=== PATIENT | female | born 1960 | race Caucasian/White ===

== ENCOUNTER → 2022-01-24 10:28 | Outpatient (CLI) | payer OTHER, SELFPAY ==
--- NOTE | 2022-01-24 | DI.MG.S_ITS ---
BILATERAL DIGITAL SCREENING MAMMOGRAM 3D/2D WITH CAD: 01/24/2022 CLINICAL: Routine screening. Comparison is made to exams dated: 05/24/2020 mammogram, 04/25/2018 mammogram, and 11/15/2016 mammogram - outside location. There are scattered fibroglandular elements in both breasts. Current study was also evaluated with a Computer Aided Detection (CAD) system. No significant masses, calcifications, or other findings are seen in either breast. There has been no significant interval change. IMPRESSION: NEGATIVE There is no mammographic evidence of malignancy. A 1 year screening mammogram is recommended. This exam was interpreted at Station ID: [id number]. NOTE: For mammograms, a report in lay terms will be sent to the patient. Approximately 15% of breast malignancies will not be visualized mammographically. In the management of a palpable breast mass, a negative mammogram must not discourage biopsy of a clinically suspicious lesion. Electronically Signed By: Eddi Maza M.D. at/keith:01/24/2022 11:17:22 letter sent: Normal Exam ACR BI-RADS Category 1: Negative [id number]
== END ==
PROVIDERS: PCP Family Medicine; Referring Provider Family Medicine; Visit Provider Family Medicine
DX: Z12.31 Encounter for screening mammogram for malignant neoplasm of breast (principal)
CPT/HCPCS: 77063; 77067

== ENCOUNTER 2024-01-03 07:30 | Outpatient (RCR) | payer MEDICARE, OTHER, SELFPAY ==
--- NOTE | 2023-12-21 16:03 | PT.OIE ---
Current Diagnoses Muscle weakness (generalized) (12/21/23) Unsteadiness on feet (12/21/23) Other abnormalities of gait and mobility (12/21/23) Repeated falls (12/21/23) Past Medical History (Last Reviewed 09/08/23 @ 08:07 by Pam Cameron PA-C) Diverticulitis Left lower quadrant abdominal pain Visit Care Team Role Provider Type Priyanka Spicer MD Attending Provider Non-Staff Family Provider Primary Care Provider Referring Provider Specialty: Family Practice Address: [address] [place] [address], [facility] Email: Physical Therapy Initial Evaluation PT-OP-A Visit Information Start: 12/21/23 15:31 Freq: Status: Active Protocol: Document 12/21/23 09:45 DCW (Rec: 12/21/23 16:03 DCW [id number]) Out-Patient Physical Therapy Visit Information Visit Information Visit Type Initial Evaluation Visit Start Time 09:45 Visit Stop Time 10:30 Visit Number 1 Number of AUDIT MANAGER Visits 0 Evaluation Information Evaluation Date 12/21/23 PT-OP-B Current Condition Start: 12/21/23 15:31 Freq: Status: Active Protocol: Document 12/21/23 09:45 DCW (Rec: 12/21/23 16:03 DCW [id number]) Current Condition History of Current Condition Onset Date Two months history Current Complaints Imbalance, falls, fear of falling History of Current Condition Pt is a 63 year old female presenting with a sudden spontaneous worsening of balance with repeated falls since October of last year. Pt notes there was no instigating factor, just suddenly became very unsteady on her feet. Notes she feels like she just kind of loses control with forward momentum , can't get herself to stop. Has fallen both backwards and forward. Severe fear of falling following this sudden change has resulted in pt hardly ever going anywhere, admits she doesn't feel comfortable doing anything that may challenge her balance , Pt does note that she has had shingles twice in the past year, and was told by a intelligence agent that it could have going into her brain, which greatly worries pt. Pt displays very high emotional liability in regards to potential causes of her current symptoms, and appear to be exhibiting a high level of stress. Has also recently suffered the passing of her mother, which has added to her level of stress. Pt has received a referral for an MRI , but does not have one scheduled yet, as she would like to use an open MRI. Treatment Goals Patient/Caregiver Goals Decrease fear of falling, learn to use trekking poles, eliminate falls PT-OP-C Subjective Start: 12/21/23 15:31 Freq: Status: Active Protocol: Document 12/21/23 09:45 DCW (Rec: 12/21/23 16:03 DCW [id number]) OP-PT Subjective Patient Comments Patient Comments Pt denies any rotational vertigo, just notes imbalance Patient Questionnaires ABC- Activity Specific Balance Confidence Scale ABC Score 86.88% Other Questionnaire Name and Score Falls Efficacy Scale - International: PT-OP-D Balance Start: 12/21/23 15:31 Freq: Status: Active Protocol: Document 12/21/23 09:45 DCW (Rec: 12/21/23 16:03 DCW [id number]) Balance Tests Cm Balance Test Cm Balance Test Score 46/56 Cm Impairment Rating 1 to 19% Impaired (Score 45-55 ) Cm Balance Assessment Evaluation Sitting to Standing Ability Independent w/out Hands Unsupported Stance Safely- 2 minutes Sitting Unsupported, Feet on Floor Safely- 2 minutes Standing to Sitting Ability Safely, Minimal Hand Use Transfer Ability Safely, Minimal Hand Use Unsupported Stance- Eyes Closed Safely, 10 seconds Unsupported Stance- Eyes Open Independent, 1 minute Reaching Forward Standing Safely, 5 inches Pick- Up Object From Floor Independent/Safe Look Behind Shoulder - Standing Shifts Weight Unilateral Turning 360 Degrees Turns slowly, but safely Unsupported Stance, Alternating Feet on 4 Steps w/Supervision Stair Unsupported Tandem Stance Holds Tandem- 30 seconds Unilateral Leg Stance Lifts Leg/Unable to Hold Total Score Cm Total Score (out of 56 points) 46 Cm Impairment Rating 1 to 19% Impaired (Score 45-55 ) PT-OP-E Functional Tests Start: 12/21/23 15:31 Freq: Status: Active Protocol: Document 12/21/23 09:45 DCW (Rec: 12/21/23 16:03 DCW [id number]) Functional Tests Dynamic Gait Index (DGI) Score 1724 DGI Impairment Rating 20 to <40% Impaired (Score 15- 19) PT-OP-M Strength Start: 12/21/23 15:31 Freq: Status: Active Protocol: Document 12/21/23 09:45 DCW (Rec: 12/21/23 16:03 DCW [id number]) Hip Strength Hip Manual Muscle Testing Right Flexion (L2) 3+ Fair+ Abduction 4- Good- Adduction 4- Good- Left Flexion (L2) 3+ Fair+ Abduction 4- Good- Adduction 4- Good- Knee Strength Knee Manual Muscle Testing Right Flexion (S2) 4+ Good+ Extension (L3) 4+ Good+ Left Flexion (S2) 4+ Good+ Extension (L3) 4+ Good+ Ankle/Foot Strength Ankle and Foot Manual Muscle Testing Right Dorsiflexion (L4) 4 Good Left Dorsiflexion (L4) 4 Good PT-OP-T Assessment and Plan Start: 12/21/23 15:31 Freq: Status: Active Protocol: Document 12/21/23 09:45 DCW (Rec: 12/21/23 16:03 DCW [id number]) Physical Therapy Assessment Rehab Potential Rehabilitation Potential Good Evaluation Complexity Number of Personal Factors/Comorbidities 3 or More Number of Body Systems Impaired 4 or More Clinical Presentation at Evaluation Unstable Impairments Impairments Balance,Functional Activities, Functional Mobility,Strength Other Concerns Fall Risk High falls risk Goals Three Impairment Pt at increased falls risk, per DGI score () Care Home Goal (LTG) Pt to increase DGI score by at least three points to 2024 in order to demonstrate decreased falls risk LTG Duration 03/20/24 Two Impairment Pt exhibits significant bilateral hip weakness (3+/5, 4-/5) Care Home Goal (LTG) Pt to demonstrate bilateral hip MMT of at least 4/5 with hip flexion, abduction, and adduction in order to improve hip stability during gait LTG Duration 03/20/24 One Impairment Pt does not have an appropriate home exercise program Short Term Goal (STG) Pt to be independent and compliant with an appropriate HEP STG Duration 01/19/24 Assessment Summary Assessment Pt presents with signs and symptoms consistent with increased falls risk, high fear of falling, and hip weakness, resulting in limited participation in usual activities and deconditioning. Pt had unexplained sudden change in function two months ago, and has experienced multiple falls, which may be concerning for central cause of imbalance. Pt has already obtained referral for brain MRI, which is a good next step . In the meantime, pt should greatly benefit from skilled therapy focusing on balance and gait training, hip strengthening, and improving activity tolerance in an effort to decrease both falls risk and pt's severe fear of falling. Pt does exhibit fairly significant bilateral hip weakness, which may additionally be creating worsening imbalance and difficulty correcting any potential LOB due to difficulty with hip strategies . Physical Therapy Plan Frequency and Duration Frequency of Treatment 2x/Week Plan of Care Start Date 12/21/23 Plan of Care End Date 03/20/24 Therapeutic Interventions Therapeutic Interventions Balance Training,Gait Training ,Home Exercise Program,Joint Mobilizations,Manual Therapy, Neuromuscular Re-education, Patient/Caregiver Education, Self-Care/Home Management,Soft Tissue Mobilization, Therapeutic Activities, Therapeutic Exercises Modalities Cold Pack/Ice Massage,Electric Stimulation,Hot Packs, Ultrasound Next Visit Focus/Plan Next Note Type Treatment Note Next Visit Plan Hip strengthening, balance/ gait training
--- NOTE | 2023-12-21 16:04 | PT.OPPOC ---
Physical, Occupational & Speech Therapy At [facility] Current Diagnoses Muscle weakness (generalized) (12/21/23) Unsteadiness on feet (12/21/23) Other abnormalities of gait and mobility (12/21/23) Repeated falls (12/21/23) Visit Care Team Role Provider Type Priyanka Spicer MD Attending Provider Non-Staff Family Provider Primary Care Provider Referring Provider Specialty: Family Practice Address: [address] [place] [address], [facility] Email: Plan Of Care PT-OP-T Assessment and Plan Start: 12/21/23 15:31 Freq: Status: Active Protocol: Document 12/21/23 09:45 DCW (Rec: 12/21/23 16:03 DCW [id number]) Physical Therapy Assessment Rehab Potential Rehabilitation Potential Good Evaluation Complexity Number of Personal Factors/Comorbidities 3 or More Number of Body Systems Impaired 4 or More Clinical Presentation at Evaluation Unstable Impairments Impairments Balance,Functional Activities, Functional Mobility,Strength Other Concerns Fall Risk High falls risk Goals Three Impairment Pt at increased falls risk, per DGI score () Nursing Home Goal (LTG) Pt to increase DGI score by at least three points to in order to demonstrate decreased falls risk LTG Duration 03/20/24 Two Impairment Pt exhibits significant bilateral hip weakness (3+/5, 4-/5) Nursing Home Goal (LTG) Pt to demonstrate bilateral hip MMT of at least 4/5 with hip flexion, abduction, and adduction in order to improve hip stability during gait LTG Duration 03/20/24 One Impairment Pt does not have an appropriate home exercise program Short Term Goal (STG) Pt to be independent and compliant with an appropriate HEP STG Duration 01/19/24 Assessment Summary Assessment Pt presents with signs and symptoms consistent with increased falls risk, high fear of falling, and hip weakness, resulting in limited participation in usual activities and deconditioning. Pt had unexplained sudden change in function two months ago, and has experienced multiple falls, which may be concerning for central cause of imbalance. Pt has already obtained referral for brain MRI, which is a good next step . In the meantime, pt should greatly benefit from skilled therapy focusing on balance and gait training, hip strengthening, and improving activity tolerance in an effort to decrease both falls risk and pt's severe fear of falling. Pt does exhibit fairly significant bilateral hip weakness, which may additionally be creating worsening imbalance and difficulty correcting any potential LOB due to difficulty with hip strategies . Physical Therapy Plan Frequency and Duration Frequency of Treatment 2x/Week Plan of Care Start Date 12/21/23 Plan of Care End Date 03/20/24 Therapeutic Interventions Therapeutic Interventions Balance Training,Gait Training ,Home Exercise Program,Joint Mobilizations,Manual Therapy, Neuromuscular Re-education, Patient/Caregiver Education, Self-Care/Home Management,Soft Tissue Mobilization, Therapeutic Activities, Therapeutic Exercises Modalities Cold Pack/Ice Massage,Electric Stimulation,Hot Packs, Ultrasound Next Visit Focus/Plan Next Note Type Treatment Note Next Visit Plan Hip strengthening, balance/ gait training Plan of Care Dates Plan of Care Start Date 12/21/23 Plan of Care End Date 03/20/24 Electronically Signed by: Pardeep Gutierrez, PT 12/21/23 0597 If you are in agreement with this Plan of Care, please return a signed and dated copy. I have reviewed this Plan of Care and certify that the skilled therapy services above are required to meet the patient?s needs. Physician Signature Date Printed Name and Credentials Clinical Instructor Signature Printed Name and Credentials
--- NOTE | 2023-12-26 11:18 | PT.OTN ---
Current Diagnoses Muscle weakness (generalized) (12/26/23) Unsteadiness on feet (12/26/23) Other abnormalities of gait and mobility (12/26/23) Repeated falls (12/26/23) Physical Therapy Treatment Note PT-OP-A Visit Information Start: 12/21/23 15:31 Freq: Status: Active Protocol: Document 12/26/23 10:30 DCW (Rec: 12/26/23 11:18 DCW [id number]) Out-Patient Physical Therapy Visit Information Visit Information Visit Type Initial Evaluation Visit Start Time 10:30 Visit Stop Time 11:15 Visit Number 2 Number of PAPER PROCESSING MACHINE HELPER Visits 0 Evaluation Information Evaluation Date 12/21/23 PT-OP-B Current Condition Start: 12/21/23 15:31 Freq: Status: Active Protocol: Document 12/21/23 09:45 DCW (Rec: 12/21/23 16:03 DCW [id number]) Current Condition History of Current Condition Onset Date Two months history Current Complaints Imbalance, falls, fear of falling History of Current Condition Pt is a 63 year old female presenting with a sudden spontaneous worsening of balance with repeated falls since October of last year. Pt notes there was no instigating factor, just suddenly became very unsteady on her feet. Notes she feels like she just kind of loses control with forward momentum , can't get herself to stop. Has fallen both backwards and forward. Severe fear of falling following this sudden change has resulted in pt hardly ever going anywhere, admits she doesn't feel comfortable doing anything that may challenge her balance , Pt does note that she has had shingles twice in the past year, and was told by a business analytics analyst that it could have going into her brain, which greatly worries pt. Pt displays very high emotional liability in regards to potential causes of her current symptoms, and appear to be exhibiting a high level of stress. Has also recently suffered the passing of her mother, which has added to her level of stress. Pt has received a referral for an MRI , but does not have one scheduled yet, as she would like to use an open MRI. Treatment Goals Patient/Caregiver Goals Decrease fear of falling, learn to use trekking poles, eliminate falls PT-OP-C Subjective Start: 12/21/23 15:31 Freq: Status: Active Protocol: Document 02/06/24 10:30 DCW (Rec: 12/26/23 11:18 DCW [id number]) OP-PT Subjective Patient Comments Patient Comments Pt has switched from a heavy purse to a ken pack to help limit instability PT-OP-D Balance Start: 12/21/23 15:31 Freq: Status: Active Protocol: Document 12/21/23 09:45 DCW (Rec: 12/21/23 16:03 DCW [id number]) Balance Tests Cm Balance Test Cm Balance Test Score 46/56 Cm Impairment Rating 1 to 19% Impaired (Score 45-55 ) Cm Balance Assessment Evaluation Sitting to Standing Ability Independent w/out Hands Unsupported Stance Safely- 2 minutes Sitting Unsupported, Feet on Floor Safely- 2 minutes Standing to Sitting Ability Safely, Minimal Hand Use Transfer Ability Safely, Minimal Hand Use Unsupported Stance- Eyes Closed Safely, 10 seconds Unsupported Stance- Eyes Open Independent, 1 minute Reaching Forward Standing Safely, 5 inches Pick- Up Object From Floor Independent/Safe Look Behind Shoulder - Standing Shifts Weight Unilateral Turning 360 Degrees Turns slowly, but safely Unsupported Stance, Alternating Feet on 4 Steps w/Supervision Stair Unsupported Tandem Stance Holds Tandem- 30 seconds Unilateral Leg Stance Lifts Leg/Unable to Hold Total Score Cm Total Score (out of 56 points) 46 Cm Impairment Rating 1 to 19% Impaired (Score 45-55 ) PT-OP-E Functional Tests Start: 12/21/23 15:31 Freq: Status: Active Protocol: Document 12/21/23 09:45 DCW (Rec: 12/21/23 16:03 DCW [id number]) Functional Tests Dynamic Gait Index (DGI) Score 17 DGI Impairment Rating 20 to <40% Impaired (Score 15- 19) PT-OP-M Strength Start: 12/21/23 15:31 Freq: Status: Active Protocol: Document 12/21/23 09:45 DCW (Rec: 12/21/23 16:03 DCW [id number]) Hip Strength Hip Manual Muscle Testing Right Flexion (L2) 3+ Fair+ Abduction 4- Good- Adduction 4- Good- Left Flexion (L2) 3+ Fair+ Abduction 4- Good- Adduction 4- Good- Knee Strength Knee Manual Muscle Testing Right Flexion (S2) 4+ Good+ Extension (L3) 4+ Good+ Left Flexion (S2) 4+ Good+ Extension (L3) 4+ Good+ Ankle/Foot Strength Ankle and Foot Manual Muscle Testing Right Dorsiflexion (L4) 4 Good Left Dorsiflexion (L4) 4 Good PT-OP-Q Treatments Start: 12/21/23 15:31 Freq: Status: Active Protocol: Document 12/26/23 10:30 DCW (Rec: 12/26/23 11:18 DCW [id number]) Gym Equipment Shuttle Recovery Unilateral Squats Resistance 37# (one new) Shuttle Recovery Platform Stable Bilateral Squats Resistance 75# (three new) Shuttle Recovery Platform Stable Therapeutic Exercises Standing Exercises Hip Extension Standing Exercise Name Hip Extension Side bilateral Resistance Green loop Equipment Used // bars Other Exercises Resisted Ambulation Other Exercise Name Resisted side-stepping Resistance Green loop Equipment Used // bars Neuro Re-Education Treatment Balance Activities Foam Stance Details Foam stance Surface [employer] Comments EO, EC, X1 Balance Board Details Lateral weight shift Tandem Stance Details Tandem Stance Equipment // bars Self-Care/Home Management Treatment Education Other Education Expectation what to expect with MRI, disease process of various maladies pt is concerned about (MS, Parkinson 's, Brain Tumors). PT-OP-T Assessment and Plan Start: 12/21/23 15:31 Freq: Status: Active Protocol: Document 12/26/23 10:30 DCW (Rec: 12/26/23 11:18 DCW [id number]) Physical Therapy Assessment Impairments Impairments Balance,Functional Activities, Functional Mobility,Strength Goals Three Impairment Pt at increased falls risk, per DGI score () Instrument Shop Supervisor Goal (LTG) Pt to increase DGI score by at least three points to 20 in order to demonstrate decreased falls risk LTG Duration 03/20/24 Two Impairment Pt exhibits significant bilateral hip weakness (3+/5, 4-/5) Instrument Shop Supervisor Goal (LTG) Pt to demonstrate bilateral hip MMT of at least 4/5 with hip flexion, abduction, and adduction in order to improve hip stability during gait LTG Duration 03/20/24 One Impairment Pt does not have an appropriate home exercise program Short Term Goal (STG) Pt to be independent and compliant with an appropriate HEP STG Duration 01/19/24 Assessment Summary Assessment Pt continues to be very highly focused on potential causes of imbalance, concerned about results of upcoming MRI. Much time spent today attempting to alleviate pt's concerns. Otherwise, pt had good response to balance challenges today, improved with increased sense of comfort when in // bars. Physical Therapy Plan Frequency and Duration Frequency of Treatment 2x/Week Plan of Care Start Date 12/21/23 Plan of Care End Date 03/20/24 Therapeutic Interventions Therapeutic Interventions Balance Training,Gait Training ,Home Exercise Program,Joint Mobilizations,Manual Therapy, Neuromuscular Re-education, Patient/Caregiver Education, Self-Care/Home Management,Soft Tissue Mobilization, Therapeutic Activities, Therapeutic Exercises Modalities Cold Pack/Ice Massage,Electric Stimulation,Hot Packs, Ultrasound Next Visit Focus/Plan Next Note Type Treatment Note Next Visit Plan Hip strengthening, balance/ gait training
--- NOTE | 2023-12-29 09:48 | PT.OTN ---
Current Diagnoses Muscle weakness (generalized) (12/29/23) Unsteadiness on feet (12/29/23) Other abnormalities of gait and mobility (12/29/23) Repeated falls (12/29/23) Physical Therapy Treatment Note PT-OP-A Visit Information Start: 12/21/23 15:31 Freq: Status: Active Protocol: Document 12/29/23 09:00 DCW (Rec: 12/29/23 09:48 DCW [id number]) Out-Patient Physical Therapy Visit Information Visit Information Visit Type Initial Evaluation Visit Start Time 09:00 Visit Stop Time 09:45 Visit Number 3 Number of HR CONSULTANT Visits 0 Evaluation Information Evaluation Date 12/21/23 PT-OP-B Current Condition Start: 12/21/23 15:31 Freq: Status: Active Protocol: Document 12/21/23 09:45 DCW (Rec: 12/21/23 16:03 DCW [id number]) Current Condition History of Current Condition Onset Date Two months history Current Complaints Imbalance, falls, fear of falling History of Current Condition Pt is a 63 year old female presenting with a sudden spontaneous worsening of balance with repeated falls since October of last year. Pt notes there was no instigating factor, just suddenly became very unsteady on her feet. Notes she feels like she just kind of loses control with forward momentum , can't get herself to stop. Has fallen both backwards and forward. Severe fear of falling following this sudden change has resulted in pt hardly ever going anywhere, admits she doesn't feel comfortable doing anything that may challenge her balance , Pt does note that she has had shingles twice in the past year, and was told by a dipper and drier that it could have going into her brain, which greatly worries pt. Pt displays very high emotional liability in regards to potential causes of her current symptoms, and appear to be exhibiting a high level of stress. Has also recently suffered the passing of her mother, which has added to her level of stress. Pt has received a referral for an MRI , but does not have one scheduled yet, as she would like to use an open MRI. Treatment Goals Patient/Caregiver Goals Decrease fear of falling, learn to use trekking poles, eliminate falls PT-OP-C Subjective Start: 12/21/23 15:31 Freq: Status: Active Protocol: Document 12/29/23 09:00 DCW (Rec: 12/29/23 09:48 DCW [id number]) OP-PT Subjective Patient Comments Patient Comments Pt noted she was pretty sore/ fatigued following last visit. PT-OP-D Balance Start: 12/21/23 15:31 Freq: Status: Active Protocol: Document 12/21/23 09:45 DCW (Rec: 12/21/23 16:03 DCW [id number]) Balance Tests Cm Balance Test Cm Balance Test Score 46/56 Cm Impairment Rating 1 to 19% Impaired (Score 45-55 ) Cm Balance Assessment Evaluation Sitting to Standing Ability Independent w/out Hands Unsupported Stance Safely- 2 minutes Sitting Unsupported, Feet on Floor Safely- 2 minutes Standing to Sitting Ability Safely, Minimal Hand Use Transfer Ability Safely, Minimal Hand Use Unsupported Stance- Eyes Closed Safely, 10 seconds Unsupported Stance- Eyes Open Independent, 1 minute Reaching Forward Standing Safely, 5 inches Pick- Up Object From Floor Independent/Safe Look Behind Shoulder - Standing Shifts Weight Unilateral Turning 360 Degrees Turns slowly, but safely Unsupported Stance, Alternating Feet on 4 Steps w/Supervision Stair Unsupported Tandem Stance Holds Tandem- 30 seconds Unilateral Leg Stance Lifts Leg/Unable to Hold Total Score Cm Total Score (out of 56 points) 46 Cm Impairment Rating 1 to 19% Impaired (Score 45-55 ) PT-OP-E Functional Tests Start: 12/21/23 15:31 Freq: Status: Active Protocol: Document 12/21/23 09:45 DCW (Rec: 12/21/23 16:03 DCW [id number]) Functional Tests Dynamic Gait Index (DGI) Score 17 DGI Impairment Rating 20 to <40% Impaired (Score 15- 19) PT-OP-M Strength Start: 12/21/23 15:31 Freq: Status: Active Protocol: Document 12/21/23 09:45 DCW (Rec: 12/21/23 16:03 DCW [id number]) Hip Strength Hip Manual Muscle Testing Right Flexion (L2) 3+ Fair+ Abduction 4- Good- Adduction 4- Good- Left Flexion (L2) 3+ Fair+ Abduction 4- Good- Adduction 4- Good- Knee Strength Knee Manual Muscle Testing Right Flexion (S2) 4+ Good+ Extension (L3) 4+ Good+ Left Flexion (S2) 4+ Good+ Extension (L3) 4+ Good+ Ankle/Foot Strength Ankle and Foot Manual Muscle Testing Right Dorsiflexion (L4) 4 Good Left Dorsiflexion (L4) 4 Good PT-OP-Q Treatments Start: 12/21/23 15:31 Freq: Status: Active Protocol: Document 12/29/23 09:00 DCW (Rec: 12/29/23 09:48 DCW [id number]) Gym Equipment Shuttle Recovery Unilateral Squats Resistance 37# (one new) Shuttle Recovery Platform Stable Bilateral Squats Resistance 75# (three new) Shuttle Recovery Platform Stable Shuttle Balance Red Details WBOS, Staggered Therapeutic Exercises Standing Exercises Hip Extension Standing Exercise Name Hip Extension Side bilateral Resistance Green loop Equipment Used // bars Other Exercises Resisted Ambulation Other Exercise Name Resisted side-stepping Resistance Green loop Equipment Used // bars Neuro Re-Education Treatment Balance Activities Hurdles Details Hurdles Equipment // bars Foam Stance Details Marching Surface Large blue foam PT-OP-T Assessment and Plan Start: 12/21/23 15:31 Freq: Status: Active Protocol: Document 12/29/23 09:00 DCW (Rec: 12/29/23 09:48 DCW [id number]) Physical Therapy Assessment Impairments Impairments Balance,Functional Activities, Functional Mobility,Strength Goals Three Impairment Pt at increased falls risk, per DGI score () Residential Goal (LTG) Pt to increase DGI score by at least three points to in order to demonstrate decreased falls risk LTG Duration 03/20/24 Two Impairment Pt exhibits significant bilateral hip weakness (3+/5, 4-/5) Group Fitness Instructor Goal (LTG) Pt to demonstrate bilateral hip MMT of at least 4/5 with hip flexion, abduction, and adduction in order to improve hip stability during gait LTG Duration 03/20/24 One Impairment Pt does not have an appropriate home exercise program Short Term Goal (STG) Pt to be independent and compliant with an appropriate HEP STG Duration 01/19/24 Assessment Summary Assessment Difficulty with balance challenges today, pt a little more open to performing without holding on to rail. Still clearly impacted by hip weakness leading to increased instability. Physical Therapy Plan Frequency and Duration Frequency of Treatment 2x/Week Plan of Care Start Date 12/21/23 Plan of Care End Date 03/20/24 Therapeutic Interventions Therapeutic Interventions Balance Training,Gait Training ,Home Exercise Program,Joint Mobilizations,Manual Therapy, Neuromuscular Re-education, Patient/Caregiver Education, Self-Care/Home Management,Soft Tissue Mobilization, Therapeutic Activities, Therapeutic Exercises Modalities Cold Pack/Ice Massage,Electric Stimulation,Hot Packs, Ultrasound Next Visit Focus/Plan Next Note Type Treatment Note Next Visit Plan Hip strengthening, balance/ gait training
--- NOTE | 2024-01-03 08:15 | PT.OTN ---
Current Diagnoses Muscle weakness (generalized) (01/03/24) Unsteadiness on feet (01/03/24) Other abnormalities of gait and mobility (01/03/24) Repeated falls (01/03/24) Physical Therapy Treatment Note PT-OP-A Visit Information Start: 12/21/23 15:31 Freq: Status: Active Protocol: Document 01/03/24 07:30 SP (Rec: 01/03/24 08:20 SP [id number]) Out-Patient Physical Therapy Visit Information Visit Information Visit Type Treatment Note Visit Start Time 07:30 Visit Stop Time 08:15 Visit Number 4 Number of SHOT POLISHER AND INSPECTOR Visits 1 Evaluation Information Evaluation Date 12/21/23 PT-OP-B Current Condition Start: 12/21/23 15:31 Freq: Status: Active Protocol: Document 12/21/23 09:45 DCW (Rec: 12/21/23 16:03 DCW [id number]) Current Condition History of Current Condition Onset Date Two months history Current Complaints Imbalance, falls, fear of falling History of Current Condition Pt is a 63 year old female presenting with a sudden spontaneous worsening of balance with repeated falls since October of last year. Pt notes there was no instigating factor, just suddenly became very unsteady on her feet. Notes she feels like she just kind of loses control with forward momentum , can't get herself to stop. Has fallen both backwards and forward. Severe fear of falling following this sudden change has resulted in pt hardly ever going anywhere, admits she doesn't feel comfortable doing anything that may challenge her balance , Pt does note that she has had shingles twice in the past year, and was told by a club lounge attendant that it could have going into her brain, which greatly worries pt. Pt displays very high emotional liability in regards to potential causes of her current symptoms, and appear to be exhibiting a high level of stress. Has also recently suffered the passing of her mother, which has added to her level of stress. Pt has received a referral for an MRI , but does not have one scheduled yet, as she would like to use an open MRI. Treatment Goals Patient/Caregiver Goals Decrease fear of falling, learn to use trekking poles, eliminate falls PT-OP-C Subjective Start: 12/21/23 15:31 Freq: Status: Active Protocol: Document 01/03/24 07:30 SP (Rec: 01/03/24 08:20 SP [id number]) OP-PT Subjective Patient Comments Patient Comments Pt arrival use of 1 trek pole in RUE, got little dizzy walking into clinic and checking in, family and consumer sciences teacher reported noted sway/LOB provided chair to sit quickly for safety. Insurance Advisor reported to SHOT POLISHER AND INSPECTOR, pt's poor mobility and dizziness when arrived pre tx as SHOT POLISHER AND INSPECTOR came up to front to get pt. Pt stated had an MRI of brain yesterday and awaiting results. Her physician's are closer to [place]. PT-OP-D Balance Start: 12/21/23 15:31 Freq: Status: Active Protocol: Document 12/21/23 09:45 DCW (Rec: 12/21/23 16:03 DCW [id number]) Balance Tests Cm Balance Test Cm Balance Test Score 46/56 Cm Impairment Rating 1 to 19% Impaired (Score 45-55 ) Cm Balance Assessment Evaluation Sitting to Standing Ability Independent w/out Hands Unsupported Stance Safely- 2 minutes Sitting Unsupported, Feet on Floor Safely- 2 minutes Standing to Sitting Ability Safely, Minimal Hand Use Transfer Ability Safely, Minimal Hand Use Unsupported Stance- Eyes Closed Safely, 10 seconds Unsupported Stance- Eyes Open Independent, 1 minute Reaching Forward Standing Safely, 5 inches Pick- Up Object From Floor Independent/Safe Look Behind Shoulder - Standing Shifts Weight Unilateral Turning 360 Degrees Turns slowly, but safely Unsupported Stance, Alternating Feet on 4 Steps w/Supervision Stair Unsupported Tandem Stance Holds Tandem- 30 seconds Unilateral Leg Stance Lifts Leg/Unable to Hold Total Score Cm Total Score (out of 56 points) 46 Cm Impairment Rating 1 to 19% Impaired (Score 45-55 ) PT-OP-E Functional Tests Start: 12/21/23 15:31 Freq: Status: Active Protocol: Document 12/21/23 09:45 DCW (Rec: 12/21/23 16:03 DCW [id number]) Functional Tests Dynamic Gait Index (DGI) Score 1724 DGI Impairment Rating 20 to <40% Impaired (Score 15- 19) PT-OP-M Strength Start: 12/21/23 15:31 Freq: Status: Active Protocol: Document 12/21/23 09:45 DCW (Rec: 12/21/23 16:03 DCW [id number]) Hip Strength Hip Manual Muscle Testing Right Flexion (L2) 3+ Fair+ Abduction 4- Good- Adduction 4- Good- Left Flexion (L2) 3+ Fair+ Abduction 4- Good- Adduction 4- Good- Knee Strength Knee Manual Muscle Testing Right Flexion (S2) 4+ Good+ Extension (L3) 4+ Good+ Left Flexion (S2) 4+ Good+ Extension (L3) 4+ Good+ Ankle/Foot Strength Ankle and Foot Manual Muscle Testing Right Dorsiflexion (L4) 4 Good Left Dorsiflexion (L4) 4 Good PT-OP-Q Treatments Start: 12/21/23 15:31 Freq: Status: Active Protocol: Document 01/03/24 07:30 SP (Rec: 01/03/24 08:20 SP [id number]) Therapeutic Exercises Sitting Exercises hip abd Sitting Exercise Name trialed in PT: added to HEP Resistance TB #3 [place] at thighs Reps/Minutes 2x10 Comments this is good resistance, muscles tiring LAQ Sitting Exercise Name trialed in PT Resistance 5# leg wt Reps/Minutes 2x10 Comments target to kick to therapist hand.quad tiring Self-Care/Home Management Treatment Education Other Education Extra time safety education on assessment of BP checks and time transition between position changes at least 1 min if needed for safety progression mobility, verbalized no one has ever told me this, good idea. Extra time assessing vitals and safety mobility. Discussed with pt Concerns of HR and BP elevation and reported dizziness and LOB when checking in, recommend going to ER for further assessment safety. Pt in agreement, called her to come meet her and suggested calling her physician for awareness and if has further recommendations. Pt verbalized will do as suggested and in agreement. PT-OP-T Assessment and Plan Start: 12/21/23 15:31 Freq: Status: Active Protocol: Document 01/03/24 07:30 SP (Rec: 01/03/24 08:20 SP [id number]) Physical Therapy Assessment Goals Three Impairment Pt at increased falls risk, per DGI score () Therapist Goal (LTG) Pt to increase DGI score by at least three points to in order to demonstrate decreased falls risk LTG Duration 03/20/24 Two Impairment Pt exhibits significant bilateral hip weakness (3+/5, 4-/5) Jail Goal (LTG) Pt to demonstrate bilateral hip MMT of at least 4/5 with hip flexion, abduction, and adduction in order to improve hip stability during gait LTG Duration 03/20/24 One Impairment Pt does not have an appropriate home exercise program Short Term Goal (STG) Pt to be independent and compliant with an appropriate HEP STG Duration 01/19/24 Assessment Summary Assessment SHOT POLISHER AND INSPECTOR provided vital assessment pre tx and with seated and brief standing stepping mobility CGa for safety if need further medical attention . Seated in front counter clerk chair: BP LUE automated 154/95 HR 103 seated, standing 162/92 HR 110, noted slight trunk sways while using R trek pole for stability. Provided w/c for portability to gym for further assessment safety during tx. Seated /p LE ex L UE BP 135/90 HR 100, stand 145/90 HR108, post stand side stepping in // bars BP 166/93 HR 120. SHOT POLISHER AND INSPECTOR provided gait belt and CGA for safety during mobility, she denies symptomatic, I feel tired and suprised had that light headness/dizziness, has been a long time, I am usually just off balance and why am here to get stronger. Pt non symptomatic during ther ex, transfer and side stepping mobility but states feeling tired. Pt inagreement further assessment to ER would be [facility] . SHOT POLISHER AND INSPECTOR pushed pt up in w/c to ER and provided BPs taken and summary of intake and mobilty noted during tx to triage nurse in ER. ER staff took over care. Physical Therapy Plan Frequency and Duration Frequency of Treatment 2x/Week Plan of Care Start Date 12/21/23 Plan of Care End Date 03/20/24 Therapeutic Interventions Therapeutic Interventions Balance Training,Gait Training ,Home Exercise Program,Joint Mobilizations,Manual Therapy, Neuromuscular Re-education, Patient/Caregiver Education, Self-Care/Home Management,Soft Tissue Mobilization, Therapeutic Activities, Therapeutic Exercises Modalities Cold Pack/Ice Massage,Electric Stimulation,Hot Packs, Ultrasound Next Visit Focus/Plan Next Note Type Treatment Note Next Visit Plan Ask how pt did in ER end last tx. Progress if stable. POC: Hip strengthening, balance/gait training
--- NOTE | 2024-01-29 10:08 | PT.OPDS ---
Current Diagnoses Muscle weakness (generalized) (01/03/24) Unsteadiness on feet (01/03/24) Other abnormalities of gait and mobility (01/03/24) Repeated falls (01/03/24) Visit Care Team Role Provider Type Priyanka Spicer MD Attending Provider Non-Staff Family Provider Primary Care Provider Referring Provider Specialty: Family Practice Address: [address] [place] [address], [facility] Email: Visit Number Visit Number 4 Discharge Summary PT-OP-B Current Condition Start: 12/21/23 15:31 Freq: Status: Active Protocol: Document 12/21/23 09:45 DCW (Rec: 12/21/23 16:03 DCW [id number]) Current Condition History of Current Condition Onset Date Two months history Current Complaints Imbalance, falls, fear of falling History of Current Condition Pt is a 63 year old female presenting with a sudden spontaneous worsening of balance with repeated falls since October of last year. Pt notes there was no instigating factor, just suddenly became very unsteady on her feet. Notes she feels like she just kind of loses control with forward momentum , can't get herself to stop. Has fallen both backwards and forward. Severe fear of falling following this sudden change has resulted in pt hardly ever going anywhere, admits she doesn't feel comfortable doing anything that may challenge her balance , Pt does note that she has had shingles twice in the past year, and was told by a integration software engineer that it could have going into her brain, which greatly worries pt. Pt displays very high emotional liability in regards to potential causes of her current symptoms, and appear to be exhibiting a high level of stress. Has also recently suffered the passing of her mother, which has added to her level of stress. Pt has received a referral for an MRI , but does not have one scheduled yet, as she would like to use an open MRI. Treatment Goals Patient/Caregiver Goals Decrease fear of falling, learn to use trekking poles, eliminate falls PT-OP-C Subjective Start: 12/21/23 15:31 Freq: Status: Active Protocol: Document 01/03/24 07:30 SP (Rec: 01/03/24 08:20 SP [id number]) OP-PT Subjective Patient Comments Patient Comments Pt arrival use of 1 trek pole in [place], got little dizzy walking into clinic and checking in, mill roll operator reported noted sway/LOB provided chair to sit quickly for safety. Quality Assurance Monitor Body reported to DELIVERY CONSULTANT, pt's poor mobility and dizziness when arrived pre tx as DELIVERY CONSULTANT came up to front to get pt. Pt stated had an MRI of brain yesterday and awaiting results. Her physician's are closer to [place]. PT-OP-D Balance Start: 12/21/23 15:31 Freq: Status: Active Protocol: Document 12/21/23 09:45 DCW (Rec: 12/21/23 16:03 DCW [id number]) Balance Tests Cm Balance Test Cm Balance Test Score 46/56 Cm Impairment Rating 1 to 19% Impaired (Score 45-55 ) Cm Balance Assessment Evaluation Sitting to Standing Ability Independent w/out Hands Unsupported Stance Safely- 2 minutes Sitting Unsupported, Feet on Floor Safely- 2 minutes Standing to Sitting Ability Safely, Minimal Hand Use Transfer Ability Safely, Minimal Hand Use Unsupported Stance- Eyes Closed Safely, 10 seconds Unsupported Stance- Eyes Open Independent, 1 minute Reaching Forward Standing Safely, 5 inches Pick- Up Object From Floor Independent/Safe Look Behind Shoulder - Standing Shifts Weight Unilateral Turning 360 Degrees Turns slowly, but safely Unsupported Stance, Alternating Feet on 4 Steps w/Supervision Stair Unsupported Tandem Stance Holds Tandem- 30 seconds Unilateral Leg Stance Lifts Leg/Unable to Hold Total Score Cm Total Score (out of 56 points) 46 Cm Impairment Rating 1 to 19% Impaired (Score 45-55 ) PT-OP-E Functional Tests Start: 12/21/23 15:31 Freq: Status: Active Protocol: Document 12/21/23 09:45 DCW (Rec: 12/21/23 16:03 DCW [id number]) Functional Tests Dynamic Gait Index (DGI) Score 17 DGI Impairment Rating 20 to <40% Impaired (Score 15- 19) PT-OP-M Strength Start: 12/21/23 15:31 Freq: Status: Active Protocol: Document 12/21/23 09:45 DCW (Rec: 12/21/23 16:03 DCW [id number]) Hip Strength Hip Manual Muscle Testing Right Flexion (L2) 3+ Fair+ Abduction 4- Good- Adduction 4- Good- Left Flexion (L2) 3+ Fair+ Abduction 4- Good- Adduction 4- Good- Knee Strength Knee Manual Muscle Testing Right Flexion (S2) 4+ Good+ Extension (L3) 4+ Good+ Left Flexion (S2) 4+ Good+ Extension (L3) 4+ Good+ Ankle/Foot Strength Ankle and Foot Manual Muscle Testing Right Dorsiflexion (L4) 4 Good Left Dorsiflexion (L4) 4 Good PT-OP-T Assessment and Plan Start: 12/21/23 15:31 Freq: Status: Active Protocol: Document 01/29/24 10:04 DCW (Rec: 01/29/24 10:08 DCW [id number]) Physical Therapy Assessment Assessment Summary Assessment Pt was sent to the ED at her last PT appointment. Pt was found to have a mass in her brain, and was transferred to , underwent a craniotomy to remove the mass. Will be returning to PT at a later date with a new referral due to substantial change in medical status. Physical Therapy Plan Discharge Physical Therapy Discharge Reasons Change in Medical Status
== END 2024-01-30 07:53 | disposition home or self-care (01) ==
LOC: PHYS 07:30
PROVIDERS: Family Provider Family Medicine; PCP Family Medicine; Referring Provider Family Medicine; Visit Provider Family Medicine
DX: R26.89 Other abnormalities of gait and mobility (principal); R29.6 Repeated falls; R26.81 Unsteadiness on feet; M62.81 Muscle weakness (generalized)
CPT/HCPCS: 97110; 97112; 97163; 97535

== ENCOUNTER 2024-01-03 08:12 | Emergency (ER) | payer MEDICARE, OTHER, SELFPAY ==
[2024-01-03] VITALS (71 sets, daily range): BP systolic 124–205; BP diastolic 63–116; PULSE 92–135; RESP 12–32; TEMP 37.1; O2SAT 91–99; BMI 31.6
--- NOTE | 2024-01-03 08:25 | DI.RAD.S_ITS ---
PROCEDURE: XR CHEST 1V INDICATIONS: chest pain TECHNIQUE: One view of the chest was acquired. COMPARISON: None. FINDINGS: Surgical changes and devices: None. Lungs and pleura: Lungs are clear. No pleural effusions or pneumothorax. Mediastinum: Mediastinal contours appear normal. Heart size is enlarged. Bones and chest wall: No suspicious bony lesions. Overlying soft tissues appear unremarkable. IMPRESSION: No acute cardiopulmonary pathology. Dictated by: David Duque M.D. on 01/03/2024 at 8:56 Approved by: David Duque M.D. on 01/03/2024 at 8:57
--- NOTE | 2024-01-03 08:28 | ED_ITS ---
HPI - Dizziness <Kimberly Sarmiento DO - Last Filed: 01/06/24 06:50> General Chief Complaint: Dizziness Stated Complaint: light headed, high BP, heart rate 103, sent by PT Time Seen by Provider: 01/03/24 08:21 History of Present Illness HPI Narrative: Patient is a 63-year-old female history of hypothyroid hypertension presenting today with balance issue. She reports that she has actually had ongoing balance problems since October. In fact her primary care provider ordered an MRI that was done yesterday and she started physical therapy for her balance issue as well. Today she was getting out of the car at the parking lot when she felt a little tipsy but did not fall. She went to physical therapy they noted her blood pressure was high and she came to the ED. She has no chest pain or increasing weakness no vision changes. She denies any fever chills or weakness. Related Data Home Medications Medication Instructions Recorded Confirmed levothyroxine 150 mcg tablet 150 mcg PO QAM ##0 09/27/17 01/03/24 (Levoxyl) ascorbic acid (vitamin C) 500 mg 1,000 mg PO QDAY ##0 12/12/17 01/03/24 tablet amlodipine 2.5 mg tablet 2.5 mg PO BID 01/03/24 01/03/24 Allergies Allergy/AdvReac Type Severity Reaction Status Date / Time No Known Drug Allergies Allergy Verified 01/03/24 08:41 Patient History <Kimberly Sarmiento DO - Last Filed: 01/06/24 06:50> Medical History Diverticulitis Left lower quadrant abdominal pain Social History Smoking Status: Never smoker Smoking Status: Never smoker Exam <Kimberly Sarmiento DO - Last Filed: 01/06/24 06:50> Initial Vital Signs Initial Vital Signs: Vital Signs Temperature 98.8 F 01/03/24 08:15 Pulse Rate 110 H 01/03/24 08:15 Respiratory Rate 20 01/03/24 08:15 Blood Pressure 205/110 H 01/03/24 08:15 Pulse Oximetry 96 01/03/24 08:15 Oxygen Delivery Method Room Air 01/03/24 08:15 GENERAL: Alert pleasant 63-year-old female HEENT: Head atraumatic,EOMI, pupils reactive, face symmetric, moist mucous membranes CARDIOVASCULAR: Regular rate and rhythm without murmurs, rubs or gallops. RESPIRATORY: Breath sounds equal bilaterally, no wheezes rales or rhonchi. ABDOMEN: Soft, nontender. Normoactive bowel sounds all 4 quadrants. No guarding or rebound. EXTREMITIES: Normal range of motion, no clubbing or edema. Neurovascularly intact NEUROLOGICAL: Alert and oriented x4.Normal gait and speech. Cranial nerves II through XII grossly intact. Good [id number], good [id number], strength equal bilaterally, no dysarthria or aphasia, sensation in tact to soft touch bilaterally, no visual changes, no facial droop SKIN: Warm, dry, no laceration, no petechiae, no rashes or lesions. <Svetlana Moses MD - Last Filed: 01/05/24 05:36> Initial Vital Signs Initial Vital Signs: Vital Signs Temperature 98.8 F 01/03/24 08:15 Pulse Rate 110 H 01/03/24 08:15 Respiratory Rate 20 01/03/24 08:15 Blood Pressure 205/110 H 01/03/24 08:15 Pulse Oximetry 96 01/03/24 08:15 Oxygen Delivery Method Room Air 01/03/24 08:15 <Andrew Martinez MD - Last Filed: 01/05/24 07:59> Initial Vital Signs Initial Vital Signs: Vital Signs Temperature 98.8 F 01/03/24 08:15 Pulse Rate 110 H 01/03/24 08:15 Respiratory Rate 20 01/03/24 08:15 Blood Pressure 205/110 H 01/03/24 08:15 Pulse Oximetry 96 01/03/24 08:15 Oxygen Delivery Method Room Air 01/03/24 08:15 Course <Kimberly Sarmiento DO - Last Filed: 01/06/24 06:50> Orders Ordered: Discontinued Medications Aspirin (Aspirin 81 Mg Chew Tab) 324 mg PO NOW ONE Stop: 01/03/24 08:26 Last Admin: 01/03/24 08:38 Dose: Not Given Documented By: JIMBO Dexamethasone (Dexamethasone 10 Mg/Ml Vial) 10 mg IV NOW ONE Stop: 01/03/24 09:15 Last Admin: 01/03/24 09:29 Dose: 10 mg Documented By: JIMBO Dexamethasone (Dexamethasone 10 Mg/Ml Vial) 10 mg IV NOW ONE Stop: 01/04/24 07:38 Last Admin: 01/04/24 08:03 Dose: 10 mg Documented By: OW Vital Signs Vital signs: Vital Signs - 8 hr 01/04/24 00:00 01/04/24 00:00 01/04/24 00:15 Pulse Rate 92 H 94 H Respiratory Rate 13 20 Blood Pressure 125/76 Pulse Oximetry 91 94 Oxygen Delivery Method Room Air 01/04/24 00:30 01/04/24 00:45 01/04/24 01:00 Pulse Rate 90 92 H Respiratory Rate 21 19 Blood Pressure 129/77 Pulse Oximetry 93 92 Oxygen Delivery Method 01/04/24 01:00 01/04/24 01:15 01/04/24 01:30 Pulse Rate 87 96 H 94 H Respiratory Rate 17 12 16 Blood Pressure Pulse Oximetry 93 93 93 Oxygen Delivery Method Room Air 01/04/24 01:45 01/04/24 02:00 01/04/24 02:01 Pulse Rate 88 91 H Respiratory Rate 14 13 Blood Pressure 119/65 Pulse Oximetry 93 91 Oxygen Delivery Method 01/04/24 02:01 01/04/24 02:15 01/04/24 02:30 Pulse Rate 92 H 90 92 H Respiratory Rate 16 15 20 Blood Pressure Pulse Oximetry 92 92 94 Oxygen Delivery Method Room Air 01/04/24 02:45 01/04/24 03:00 01/04/24 03:00 Pulse Rate 91 H 92 H Respiratory Rate 12 13 Blood Pressure 123/86 Pulse Oximetry 94 92 Oxygen Delivery Method 01/04/24 03:15 01/04/24 03:30 01/04/24 03:45 Pulse Rate 92 H 91 H 93 H Respiratory Rate 13 13 13 Blood Pressure Pulse Oximetry 92 91 96 Oxygen Delivery Method Room Air 01/04/24 04:00 01/04/24 04:00 01/04/24 04:15 Pulse Rate 90 93 H Respiratory Rate 13 14 Blood Pressure 123/68 Pulse Oximetry 92 93 Oxygen Delivery Method Room Air 01/04/24 04:30 01/04/24 04:45 01/04/24 05:00 Pulse Rate 93 H 82 Respiratory Rate 26 H 24 Blood Pressure 119/70 Pulse Oximetry 92 92 Oxygen Delivery Method 01/04/24 05:00 01/04/24 05:15 02/15/24 05:30 Pulse Rate 86 84 108 H Respiratory Rate 17 13 22 Blood Pressure 119/71 Pulse Oximetry 91 91 91 Oxygen Delivery Method Room Air 01/04/24 05:45 01/04/24 06:00 01/04/24 06:00 Pulse Rate 92 H 92 H Respiratory Rate 18 16 Blood Pressure 126/99 H Pulse Oximetry 97 96 Oxygen Delivery Method 01/04/24 06:15 01/04/24 06:30 01/04/24 06:49 Pulse Rate 90 87 91 H Respiratory Rate 12 13 18 Blood Pressure Pulse Oximetry 96 95 93 Oxygen Delivery Method Room Air 01/04/24 07:00 01/04/24 07:01 01/04/24 07:01 Pulse Rate 88 89 Respiratory Rate 16 19 Blood Pressure 159/72 H Pulse Oximetry 93 94 Oxygen Delivery Method Room Air <Svetlana Moses MD - Last Filed: 01/05/24 05:36> Orders Ordered: Discontinued Medications Aspirin (Aspirin 81 Mg Chew Tab) 324 mg PO NOW ONE Stop: 01/03/24 08:26 Last Admin: 01/03/24 08:38 Dose: Not Given Documented By: MPO Dexamethasone (Dexamethasone 10 Mg/Ml Vial) 10 mg IV NOW ONE Stop: 01/03/24 09:15 Last Admin: 01/03/24 09:29 Dose: 10 mg Documented By: MPO Dexamethasone (Dexamethasone 10 Mg/Ml Vial) 10 mg IV NOW ONE Stop: 01/04/24 07:38 Last Admin: 01/04/24 08:03 Dose: 10 mg Documented By: OW Vital Signs Vital signs: Vital Signs - 8 hr 01/04/24 00:00 01/04/24 00:00 01/04/24 00:15 Pulse Rate 92 H 94 H Respiratory Rate 13 20 Blood Pressure 125/76 Pulse Oximetry 91 94 Oxygen Delivery Method Room Air 01/04/24 00:30 01/04/24 00:45 01/04/24 01:00 Pulse Rate 90 92 H Respiratory Rate 21 19 Blood Pressure 129/77 Pulse Oximetry 93 92 Oxygen Delivery Method 01/04/24 01:00 01/04/24 01:15 01/04/24 01:30 Pulse Rate 87 96 H 94 H Respiratory Rate 17 12 16 Blood Pressure Pulse Oximetry 93 93 93 Oxygen Delivery Method Room Air 01/04/24 01:45 01/04/24 02:00 01/04/24 02:01 Pulse Rate 88 91 H Respiratory Rate 14 13 Blood Pressure 119/65 Pulse Oximetry 93 91 Oxygen Delivery Method 01/04/24 02:01 01/04/24 02:15 01/04/24 02:30 Pulse Rate 92 H 90 92 H Respiratory Rate 16 15 20 Blood Pressure Pulse Oximetry 92 92 94 Oxygen Delivery Method Room Air 01/04/24 02:45 01/04/24 03:00 01/04/24 03:00 Pulse Rate 91 H 92 H Respiratory Rate 12 13 Blood Pressure 123/86 Pulse Oximetry 94 92 Oxygen Delivery Method 01/04/24 03:15 01/04/24 03:30 01/04/24 03:45 Pulse Rate 92 H 91 H 93 H Respiratory Rate 13 13 13 Blood Pressure Pulse Oximetry 92 91 96 Oxygen Delivery Method Room Air 01/04/24 04:00 01/04/24 04:00 01/04/24 04:15 Pulse Rate 90 93 H Respiratory Rate 13 14 Blood Pressure 123/68 Pulse Oximetry 92 93 Oxygen Delivery Method Room Air 01/04/24 04:30 01/04/24 04:45 01/04/24 05:00 Pulse Rate 93 H 82 Respiratory Rate 26 H 24 Blood Pressure 119/70 Pulse Oximetry 92 92 Oxygen Delivery Method 01/04/24 05:00 01/04/24 05:15 01/04/24 05:30 Pulse Rate 86 84 108 H Respiratory Rate 17 13 22 Blood Pressure 119/71 Pulse Oximetry 91 91 91 Oxygen Delivery Method Room Air 01/04/24 05:45 01/04/24 06:00 01/04/24 06:00 Pulse Rate 92 H 92 H Respiratory Rate 18 16 Blood Pressure 126/99 H Pulse Oximetry 97 96 Oxygen Delivery Method 01/04/24 06:15 01/04/24 06:30 01/04/24 06:49 Pulse Rate 90 87 91 H Respiratory Rate 12 13 18 Blood Pressure Pulse Oximetry 96 95 93 Oxygen Delivery Method Room Air 01/04/24 07:00 01/04/24 07:01 01/04/24 07:01 Pulse Rate 88 89 Respiratory Rate 16 19 Blood Pressure 159/72 H Pulse Oximetry 93 94 Oxygen Delivery Method Room Air <Andrew Martinez MD - Last Filed: 01/05/24 07:59> Orders Ordered: Discontinued Medications Aspirin (Aspirin 81 Mg Chew Tab) 324 mg PO NOW ONE Stop: 01/03/24 08:26 Last Admin: 01/03/24 08:38 Dose: Not Given Documented By: MPO Dexamethasone (Dexamethasone 10 Mg/Ml Vial) 10 mg IV NOW ONE Stop: 01/03/24 09:15 Last Admin: 01/03/24 09:29 Dose: 10 mg Documented By: MPO Dexamethasone (Dexamethasone 10 Mg/Ml Vial) 10 mg IV NOW ONE Stop: 01/04/24 07:38 Last Admin: 01/04/24 08:03 Dose: 10 mg Documented By: OW Vital Signs Vital signs: Vital Signs - 8 hr 01/04/24 00:00 01/04/24 00:00 01/04/24 00:15 Pulse Rate 92 H 94 H Respiratory Rate 13 20 Blood Pressure 125/76 Pulse Oximetry 91 94 Oxygen Delivery Method Room Air 01/04/24 00:30 01/04/24 00:45 01/04/24 01:00 Pulse Rate 90 92 H Respiratory Rate 21 19 Blood Pressure 129/77 Pulse Oximetry 93 92 Oxygen Delivery Method 01/04/24 01:00 01/04/24 01:15 01/04/24 01:30 Pulse Rate 87 96 H 94 H Respiratory Rate 17 12 16 Blood Pressure Pulse Oximetry 93 93 93 Oxygen Delivery Method Room Air 01/04/24 01:45 01/04/24 02:00 01/04/24 02:01 Pulse Rate 88 91 H Respiratory Rate 14 13 Blood Pressure 119/65 Pulse Oximetry 93 91 Oxygen Delivery Method 01/04/24 02:01 01/04/24 02:15 01/04/24 02:30 Pulse Rate 92 H 90 92 H Respiratory Rate 16 15 20 Blood Pressure Pulse Oximetry 92 92 94 Oxygen Delivery Method Room Air 01/04/24 02:45 01/04/24 03:00 01/04/24 03:00 Pulse Rate 91 H 92 H Respiratory Rate 12 13 Blood Pressure 123/86 Pulse Oximetry 94 92 Oxygen Delivery Method 01/04/24 03:15 01/04/24 03:30 01/04/24 03:45 Pulse Rate 92 H 91 H 93 H Respiratory Rate 13 13 13 Blood Pressure Pulse Oximetry 92 91 96 Oxygen Delivery Method Room Air 01/04/24 04:00 01/04/24 04:00 01/04/24 04:15 Pulse Rate 90 93 H Respiratory Rate 13 14 Blood Pressure 123/68 Pulse Oximetry 92 93 Oxygen Delivery Method Room Air 01/04/24 04:30 01/04/24 04:45 01/04/24 05:00 Pulse Rate 93 H 82 Respiratory Rate 26 H 24 Blood Pressure 119/70 Pulse Oximetry 92 92 Oxygen Delivery Method 01/04/24 05:00 01/04/24 05:15 01/04/24 05:30 Pulse Rate 86 84 108 H Respiratory Rate 17 13 22 Blood Pressure 119/71 Pulse Oximetry 91 91 91 Oxygen Delivery Method Room Air 01/04/24 05:45 01/04/24 06:00 01/04/24 06:00 Pulse Rate 92 H 92 H Respiratory Rate 18 16 Blood Pressure 126/99 H Pulse Oximetry 97 96 Oxygen Delivery Method 01/04/24 06:15 01/04/24 06:30 01/04/24 06:49 Pulse Rate 90 87 91 H Respiratory Rate 12 13 18 Blood Pressure Pulse Oximetry 96 95 93 Oxygen Delivery Method Room Air 01/04/24 07:00 01/04/24 07:01 01/04/24 07:01 Pulse Rate 88 89 Respiratory Rate 16 19 Blood Pressure 159/72 H Pulse Oximetry 93 94 Oxygen Delivery Method Room Air MDM - Dizziness <Kimberly Sarmiento, DO - Last Filed: 01/06/24 06:50> Lab Data 01/03/24 08:45 01/03/24 08:45 Labs: Lab Results 01/03/24 Range/Units 08:45 WBC 7.7 (4.5-11.0) X10^3/uL RBC 5.14 (4.0-5.2) X10^6/uL Hgb 14.9 (12.0-16.0) g/dL Hct 44.0 (36-46) % MCV 85.6 (80-100) fL MCH 29.1 (26-34) PG MCHC 34.0 (30-36) % RDW 13.3 (11.6-14.8) % Plt Count 313 (150-400) X10^3/uL Neut % (Auto) 59.5 (50-75) % Lymph % (Auto) 28.2 (25-40) % [place] % (Auto) 7.0 (3-14) % Eos % (Auto) 4.5 H (2-4) % Baso % (Auto) 0.8 (0-2) % Neut # (Auto) 4600 (0763-0307) /uL Lymph # (Auto) 2200 (6438-5754) /uL [place] # (Auto) 500 (0-900) /uL Eos # (Auto) 300 (0-450) /uL Baso # (Auto) 100 (0-100) /uL PT 11.4 (9.4-12.5) SECONDS INR 1.0 (0.9-1.3) APTT 30 (25.1-36.5) SECONDS Sodium 138 (137-145) mmol/L Potassium 4.3 (3.4-5.1) mmol/L Chloride 104 (98-107) mmol/L Carbon Dioxide 24 (22-32) mmol/L BUN 18 H (7-17) mg/dL Creatinine 0.72 (0.52-1.04) mg/dL Estimated GFR > 60 (>60) mL/min BUN/Creatinine Ratio 25.0 H (6-22) Glucose 104 (80-110) mg/dL Calcium 10.2 (8.4-10.2) mg/dL Magnesium 2.2 (1.6-2.3) mg/dL Total Bilirubin 0.6 (0.2-1.3) mg/dL AST 27 (14-36) IU/L ALT 24 (<35) IU/L Alkaline Phosphatase 92 (38-126) U/L Total Creatine Kinase 27 L (30-135) U/L Troponin I < 0.012 (0.01-0.034) ng/mL Total Protein 8.7 H (6.3-8.2) g/dL Albumin 4.8 (3.5-5.0) g/dL Globulin 3.9 (1.7-4.1) g/dL Albumin/Globulin Ratio 1.2 (1.0-2.8) Lipase 120 (23-300) U/L Imaging Data CTA - brain/neck: Radiologist's Impression: PROCEDURE: CT ANGIO HEAD AND NECK INDICATIONS: on going dizziness x1 month TECHNIQUE: After the administration of intravenous contrast, 1 mm thick sections acquired from the aortic arch through the [place]. 3-dimensional bkavjub-prvaiaayk-srisefmjbc (MIP) and/or volume rendering reformats were acquired of the central intracranial vasculature and neck separately. For radiation dose reduction, the following was used: automated exposure control, adjustment of mA and/or kV according to patient size. COMPARISON: None. FINDINGS: Image quality: Degraded by metallic artifact. BRAIN: CSF spaces: Ventricles are normal in size and shape. Basal cisterns are patent. No extra-axial fluid collections. Brain: There is a 55 mm diameter predominantly cystic focus centered within the left paramedian posterior fossa, with a nodular region of enhancement at its inferior aspect, measuring roughly 8 mm. There is associated inferior herniation of the cerebellar peduncles, left greater than right, with a maximal measurement at 10 mm. Skull and face: Calvarium and facial bones appear intact, without suspicious lesions. Orbits appear normal. Sinuses: Right maxillary sinus retention cyst. Mild left maxillary sinus mucosal thickening. Moderate left and mild right ethmoid sinus mucosal thickening. Mild right frontal sinus mucosal thickening. HEAD CT ANGIOGRAPHY: Anterior circulation: Intracranial internal carotid arteries are normal in size and flow. The flow within the paired anterior cerebral arteries is normal and symmetric. The flow within the middle cerebral arteries is normal and symmetric. The anterior communicating artery is seen. No aneurysms are seen. Posterior circulation: Visualized portions of the vertebral arteries demonstrate normal caliber, and join to form a normal appearing basilar artery. Near origin of the right posterior cerebral artery. Flow within the posterior cerebral arteries is normal and symmetric. No aneurysms are seen. NECK CT ANGIOGRAPHY: Carotid system: The great vessels demonstrate a conventional anatomy as they arise from the aortic arch. The origins of the common carotid arteries appear patent. The common carotid arteries demonstrate normal caliber and courses. Mild calcific plaque of the right internal carotid artery causes minimal origin stenosis. Left internal carotid artery is patent. Posterior circulation: The origins of the vertebral arteries both appear widely patent. The more superior extracranial portions of both vertebral arteries also demonstrate normal courses and calibers. They join to form a normal appearing basilar artery. Soft tissues: Visualized neck soft tissues demonstrate no suspicious abnormalities. Bones: No suspicious bony lesions. Visualized cervical spine appears normally aligned. IMPRESSION: 1. No acute/emergent process. 2. No acute process involving the arterial tree of the head and neck. 3. 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 Any quantitative measurements of stenosis were performed using NASCET criteria. Dictated by: Kali Reid M.D. on 01/03/2024 at 9:25 Approved by: Kali Reid M.D. on 01/03/2024 at 9:31 CT scan - abdomen/pelvis: Radiologist's Impression: PROCEDURE: CT CHEST ABD PEL W CON INDICATIONS: brain mass, cancer work up TECHNIQUE: After the administration of intravenous contrast, 5 mm thick sections acquired from the lung apices to the symphysis. 5 mm coronal and sagittal reformats were performed, with additional 7 mm MIP reformats through the lungs. For radiation dose reduction, the following was used: automated exposure control, adjustment of mA and/or kV according to patient size. COMPARISON: None. FINDINGS: Image quality: Excellent. CHEST: Lower Neck: No enlarged lymph nodes. Thyroid: No thyroid nodules which require sonographic follow up, per consensus guidelines. Axillae: No enlarged lymph nodes. Chest Wall: Unremarkable. Lungs and Pleura: No pneumothorax or pleural effusions. No consolidation or suspicious nodules. Heart: Heart size is normal. No pericardial effusion. Thoracic Vessels: The aorta and pulmonary arteries demonstrate normal size. Mediastinum and [place]: No enlarged lymph nodes. Esophagus: No wall thickening. No hiatal hernia. ABDOMEN: Liver: No solid mass. Gallbladder: Surgically absent Biliary ducts: No biliary dilation. Pancreas: No ductal dilation. Spleen: Size is within normal limits. Adrenal Glands: No adrenal nodules. Kidneys and Ureters: No hydronephrosis. No solid mass. No complex renal cystic lesion which requires follow up. Stomach and Bowel: Stomach is grossly unremarkable. Small bowel is within normal limits. There is thickening of the proximal and mid sigmoid colon. Diverticulosis of the sigmoid colon is present. Peritoneum: No abnormal intraperitoneal fluid. No free air. Ventral Wall: No significant ventral hernia. Abdominal Nodes: No retroperitoneal or mesenteric adenopathy by size criteria. Vessels: Aorta and inferior vena cava are normal in size. PELVIS: Pelvic Organs: Unremarkable. Bladder: No bladder wall thickening, accounting for underdistention. Pelvic Nodes: No enlarged lymph nodes. Miscellaneous: No inguinal hernias are seen. Bones: No aggressive osseous abnormality. IMPRESSION: 1. No acute process. 2. Colonic thickening; further assessment with endoscopy is recommended to assess for neoplasm. Dictated by: Kali Reid M.D. on 01/03/2024 at 12:57 Approved by: Kali eRid M.D. on 01/03/2024 at 13:03 ECG Data Interpretation: Normal sinus rhythm rate 102 MDM Narrative Medical decision making narrative: Patient is 63-year-old female presenting today with ongoing dizziness. She had an outpatient MRI yesterday which was able To get report. 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 Metastasis is less likely due to lack of additional lesions and large cystic appearance of the lesion with smooth margins. Recommend neurosurgical evaluation Patient is neurologically intact she has an NIH stroke scale of 0 but definitely requires assistance while ambulating. 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 CT chest abdomen pelvis does not show any metastatic disease Patient is neurologically intact due to significant edema herniation she was given 10 mg of Decadron 12:10 Dr. Gaines, neurosurgery at [facility] updated patient's symptoms test results MRI was actually able to be pushed from outside facility along with a CT angio. He recommends that patient have intervention sooner rather than later would prefer that patient be transferred rather than follow-up in clinic. States that she does not need ongoing dexamethasone. [facility] does not currently have beds but it will try and get her transferred within the next 24 hours Patient remained stable in the ED. signed out to Dr. Moses <Svetlana Moses MD - Last Filed: 01/05/24 05:36> Lab Data Labs: Lab Results 01/03/24 Range/Units 08:45 WBC 7.7 (4.5-11.0) X10^3/uL RBC 5.14 (4.0-5.2) X10^6/uL Hgb 14.9 (12.0-16.0) g/dL Hct 44.0 (36-46) % MCV 85.6 (80-100) fL MCH 29.1 (26-34) PG MCHC 34.0 (30-36) % RDW 13.3 (11.6-14.8) % Plt Count 313 (150-400) X10^3/uL Neut % (Auto) 59.5 (50-75) % Lymph % (Auto) 28.2 (25-40) % [place] % (Auto) 7.0 (3-14) % Eos % (Auto) 4.5 H (2-4) % Baso % (Auto) 0.8 (0-2) % Neut # (Auto) 4600 (7396-0091) /uL Lymph # (Auto) 2200 (7858-3334) /uL [place] # (Auto) 500 (0-900) /uL Eos # (Auto) 300 (0-450) /uL Baso # (Auto) 100 (0-100) /uL PT 11.4 (9.4-12.5) SECONDS INR 1.0 (0.9-1.3) APTT 30 (25.1-36.5) SECONDS Sodium 138 (137-145) mmol/L Potassium 4.3 (3.4-5.1) mmol/L Chloride 104 (98-107) mmol/L Carbon Dioxide 24 (22-32) mmol/L BUN 18 H (7-17) mg/dL Creatinine 0.72 (0.52-1.04) mg/dL Estimated GFR > 60 (>60) mL/min BUN/Creatinine Ratio 25.0 H (6-22) Glucose 104 (80-110) mg/dL Calcium 10.2 (8.4-10.2) mg/dL Magnesium 2.2 (1.6-2.3) mg/dL Total Bilirubin 0.6 (0.2-1.3) mg/dL AST 27 (14-36) IU/L ALT 24 (<35) IU/L Alkaline Phosphatase 92 (38-126) U/L Total Creatine Kinase 27 L (30-135) U/L Troponin I < 0.012 (0.01-0.034) ng/mL Total Protein 8.7 H (6.3-8.2) g/dL Albumin 4.8 (3.5-5.0) g/dL Globulin 3.9 (1.7-4.1) g/dL Albumin/Globulin Ratio 1.2 (1.0-2.8) Lipase 120 (23-300) U/L [facility] Narrative Medical decision making narrative: Patient is 63-year-old female presenting today with ongoing dizziness. She had an outpatient MRI yesterday which was able To get report. 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 Metastasis is less likely due to lack of additional lesions and large cystic appearance of the lesion with smooth margins. Recommend neurosurgical evaluation Patient is neurologically intact she has an NIH stroke scale of 0 but definitely requires assistance while ambulating. 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 CT chest abdomen pelvis does not show any metastatic disease Patient is neurologically intact due to significant edema herniation she was given 10 mg of Decadron 12:10 Dr. Gaines, neurosurgery at [facility] updated patient's symptoms test results MRI was actually able to be pushed from outside facility along with a CT angio. He recommends that patient have intervention sooner rather than later would prefer that patient be transferred rather than follow-up in clinic. States that she does not need ongoing dexamethasone. [facility] does not currently have beds but it will try and get her transferred within the next 24 hours Patient remained stable in the ED. signed out to Dr. Moses [id number] 01/03 patient remains comfortable. Again reviewed with [facility]. They do anticipate having a bed in the morning but likely not this evening. <Andrew Martinez MD - Last Filed: 01/05/24 07:59> Lab Data Labs: Lab Results 01/03/24 Range/Units 08:45 WBC 7.7 (4.5-11.0) X10^3/uL RBC 5.14 (4.0-5.2) X10^6/uL Hgb 14.9 (12.0-16.0) g/dL Hct 44.0 (36-46) % MCV 85.6 (80-100) fL MCH 29.1 (26-34) PG MCHC 34.0 (30-36) % RDW 13.3 (11.6-14.8) % Plt Count 313 (150-400) X10^3/uL Neut % (Auto) 59.5 (50-75) % Lymph % (Auto) 28.2 (25-40) % [place] % (Auto) 7.0 (3-14) % Eos % (Auto) 4.5 H (2-4) % Baso % (Auto) 0.8 (0-2) % Neut # (Auto) 4600 (3305-0903) /uL Lymph # (Auto) 2200 (2341-8105) /uL [place] # (Auto) 500 (0-900) /uL Eos # (Auto) 300 (0-450) /uL Baso # (Auto) 100 (0-100) /uL PT 11.4 (9.4-12.5) SECONDS INR 1.0 (0.9-1.3) APTT 30 (25.1-36.5) SECONDS Sodium 138 (137-145) mmol/L Potassium 4.3 (3.4-5.1) mmol/L Chloride 104 (98-107) mmol/L Carbon Dioxide 24 (22-32) mmol/L BUN 18 H (7-17) mg/dL Creatinine 0.72 (0.52-1.04) mg/dL Estimated GFR > 60 (>60) mL/min BUN/Creatinine Ratio 25.0 H (6-22) Glucose 104 (80-110) mg/dL Calcium 10.2 (8.4-10.2) mg/dL Magnesium 2.2 (1.6-2.3) mg/dL Total Bilirubin 0.6 (0.2-1.3) mg/dL AST 27 (14-36) IU/L ALT 24 (<35) IU/L Alkaline Phosphatase 92 (38-126) U/L Total Creatine Kinase 27 L (30-135) U/L Troponin I < 0.012 (0.01-0.034) ng/mL Total Protein 8.7 H (6.3-8.2) g/dL Albumin 4.8 (3.5-5.0) g/dL Globulin 3.9 (1.7-4.1) g/dL Albumin/Globulin Ratio 1.2 (1.0-2.8) Lipase 120 (23-300) U/L [facility] Narrative Medical decision making narrative: Patient is 63-year-old female presenting today with ongoing dizziness. She had an outpatient MRI yesterday which was able To get report. 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 Metastasis is less likely due to lack of additional lesions and large cystic appearance of the lesion with smooth margins. Recommend neurosurgical evaluation Patient is neurologically intact she has an NIH stroke scale of 0 but definitely requires assistance while ambulating. 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 CT chest abdomen pelvis does not show any metastatic disease Patient is neurologically intact due to significant edema herniation she was given 10 mg of Decadron 12:10 Dr. Gaines, neurosurgery at [facility] updated patient's symptoms test results MRI was actually able to be pushed from outside facility along with a CT angio. He recommends that patient have intervention sooner rather than later would prefer that patient be transferred rather than follow-up in clinic. States that she does not need ongoing dexamethasone. [facility] does not currently have beds but it will try and get her transferred within the next 24 hours Patient remained stable in the ED. signed out to Dr. Moses 01/03 patient remains comfortable. Again reviewed with [facility]. They do anticipate having a bed in the morning but likely not this evening. January 04, 2024 7:00 a.m.. [place]: sign out from Dr Moses, patient is expected to be transferred to [facility] today. Patient has been started on Decadron. No new events overnight. Patient's case was discussed with [facility]. 8:00 a.m.. Updated patient and patient does understand need for transfer. No new needs at this time. Discharge Plan Departure Patient Disposition: Xf Acute [facility] Clinical Impression: Brain mass Prescriptions: No Action levothyroxine [Levoxyl] 150 MCG tablet 150 mcg PO QAM Qty: 0 ascorbic acid (vitamin C) 500 MG tablet 1,000 mg PO QDAY Qty: 0 amlodipine 2.5 mg tablet 2.5 mg PO BID Referrals: Priyanka Spicer MD [Primary Care Provider] -
--- NOTE | 2024-01-03 08:33 | DI.CT.S_ITS ---
PROCEDURE: CT ANGIO HEAD AND NECK INDICATIONS: on going dizziness x1 month TECHNIQUE: After the administration of intravenous contrast, 1 mm thick sections acquired from the aortic arch through the [place] of [place]. 3-dimensional frkwsox-uukgacanb-pflvobvamp (MIP) and/or volume rendering reformats were acquired of the central intracranial vasculature and neck separately. For radiation dose reduction, the following was used: automated exposure control, adjustment of mA and/or kV according to patient size. COMPARISON: None. FINDINGS: Image quality: Degraded by metallic artifact. BRAIN: CSF spaces: Ventricles are normal in size and shape. Basal cisterns are patent. No extra-axial fluid collections. Brain: There is a 55 mm diameter predominantly cystic focus centered within the left paramedian posterior fossa, with a nodular region of enhancement at its inferior aspect, measuring roughly 8 mm. There is associated inferior herniation of the cerebellar peduncles, left greater than right, with a maximal measurement at 10 mm. Skull and face: Calvarium and facial bones appear intact, without suspicious lesions. Orbits appear normal. Sinuses: Right maxillary sinus retention cyst. Mild left maxillary sinus mucosal thickening. Moderate left and mild right ethmoid sinus mucosal thickening. Mild right frontal sinus mucosal thickening. HEAD CT ANGIOGRAPHY: Anterior circulation: Intracranial internal carotid arteries are normal in size and flow. The flow within the paired anterior cerebral arteries is normal and symmetric. The flow within the middle cerebral arteries is normal and symmetric. The anterior communicating artery is seen. No aneurysms are seen. Posterior circulation: Visualized portions of the vertebral arteries demonstrate normal caliber, and join to form a normal appearing basilar artery. Near origin of the right posterior cerebral artery. Flow within the posterior cerebral arteries is normal and symmetric. No aneurysms are seen. NECK CT ANGIOGRAPHY: Carotid system: The great vessels demonstrate a conventional anatomy as they arise from the aortic arch. The origins of the common carotid arteries appear patent. The common carotid arteries demonstrate normal caliber and courses. Mild calcific plaque of the right internal carotid artery causes minimal origin stenosis. Left internal carotid artery is patent. Posterior circulation: The origins of the vertebral arteries both appear widely patent. The more superior extracranial portions of both vertebral arteries also demonstrate normal courses and calibers. They join to form a normal appearing basilar artery. Soft tissues: Visualized neck soft tissues demonstrate no suspicious abnormalities. Bones: No suspicious bony lesions. Visualized cervical spine appears normally aligned. IMPRESSION: 1. No acute/emergent process. 2. No acute process involving the arterial tree of the head and neck. 3. 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 Any quantitative measurements of stenosis were performed using NASCET criteria. Dictated by: Kali Reid M.D. on 01/03/2024 at 9:25 Approved by: Kali Reid M.D. on 01/03/2024 at 9:31
[2024-01-03 08:55] LABS: Add Manual Diff / Slide Review NO; Basophils Absolute Auto 100 /uL (0-100); Basophils Percent Auto 0.8 % (0-2); Eosinophils Absolute Auto 300 /uL (0-450); Eosinophils Percent Auto 4.5 % (2-4); Hemoglobin 14.9 g/dL (12.0-16.0); Lymphocytes Absolute Auto 2200 /uL (1100-4500); Lymphocytes Percent Auto 28.2 % (25-40); Mean Corpuscular Hemoglobin 29.1 PG (26-34); Mean Corpuscular Volume 85.6 fL (80-100); Monocytes Absolute Auto 500 /uL (0-900); Neutrophils Absolute Auto 4600 /uL (1500-7000); Neutrophils Percent Auto 59.5 % (50-75); Platelet Count 313 X10^3/uL (150-400); Red Blood Cell Count 5.14 X10^6/uL (4.0-5.2); Red Cell Distribution Width 13.3 % (11.6-14.8); White Blood Cell Count 7.7 X10^3/uL (4.5-11.0)
[2024-01-03 09:02] LABS: Prothrombin Time 11.4 SECONDS (9.4-12.5)
[2024-01-03 09:05] LABS: PTT Partial Thromboplastin Tim 30 SECONDS (25.1-36.5)
[2024-01-03 09:16] LABS: Alanine Aminotransferase 24 IU/L (<35); Albumin 4.8 g/dL (3.5-5.0); Albumin Globulin Ratio 1.2 (1.0-2.8); Alkaline Phosphatase 92 U/L (38-126); Aspartate Aminotransferase 27 IU/L (14-36); Bilirubin Total 0.6 mg/dL (0.2-1.3); Blood Urea Nitrogen 18 mg/dL (7-17); Calcium 10.2 mg/dL (8.4-10.2); Carbon Dioxide 24 mmol/L (22-32); Chloride 104 mmol/L (98-107); Creatine Kinase 27 U/L (30-135); Estimated Glomerular Filt Rate > 60 mL/min (>60); Globulin 3.9 g/dL (1.7-4.1); Glucose 104 mg/dL (80-110); HEMOLYSIS 19 (0-50); Lipase 120 U/L (23-300); Magnesium 2.2 mg/dL (1.6-2.3); Potassium 4.3 mmol/L (3.4-5.1); Sodium 138 mmol/L (137-145); Total Protein 8.7 g/dL (6.3-8.2)
[2024-01-03 09:27] LABS: Troponin I < 0.012 ng/mL (0.01-0.034)
[2024-01-03] MEDS: DEXAMETHASONE 10 MG/ML VIAL IV (09:29)
--- NOTE | 2024-01-03 12:15 | DI.CT.S_ITS ---
PROCEDURE: CT CHEST ABD PEL W CON INDICATIONS: brain mass, cancer work up TECHNIQUE: After the administration of intravenous contrast, 5 mm thick sections acquired from the lung apices to the symphysis. 5 mm coronal and sagittal reformats were performed, with additional 7 mm MIP reformats through the lungs. For radiation dose reduction, the following was used: automated exposure control, adjustment of mA and/or kV according to patient size. COMPARISON: None. FINDINGS: Image quality: Excellent. CHEST: Lower Neck: No enlarged lymph nodes. Thyroid: No thyroid nodules which require sonographic follow up, per consensus guidelines. Axillae: No enlarged lymph nodes. Chest Wall: Unremarkable. Lungs and Pleura: No pneumothorax or pleural effusions. No consolidation or suspicious nodules. Heart: Heart size is normal. No pericardial effusion. Thoracic Vessels: The aorta and pulmonary arteries demonstrate normal size. Mediastinum and [place]: No enlarged lymph nodes. Esophagus: No wall thickening. No hiatal hernia. ABDOMEN: Liver: No solid mass. Gallbladder: Surgically absent Biliary ducts: No biliary dilation. Pancreas: No ductal dilation. Spleen: Size is within normal limits. Adrenal Glands: No adrenal nodules. Kidneys and Ureters: No hydronephrosis. No solid mass. No complex renal cystic lesion which requires follow up. Stomach and Bowel: Stomach is grossly unremarkable. Small bowel is within normal limits. There is thickening of the proximal and mid sigmoid colon. Diverticulosis of the sigmoid colon is present. Peritoneum: No abnormal intraperitoneal fluid. No free air. Ventral Wall: No significant ventral hernia. Abdominal Nodes: No retroperitoneal or mesenteric adenopathy by size criteria. Vessels: Aorta and inferior vena cava are normal in size. PELVIS: Pelvic Organs: Unremarkable. Bladder: No bladder wall thickening, accounting for underdistention. Pelvic Nodes: No enlarged lymph nodes. Miscellaneous: No inguinal hernias are seen. Bones: No aggressive osseous abnormality. IMPRESSION: 1. No acute process. 2. Colonic thickening; further assessment with endoscopy is recommended to assess for neoplasm. Dictated by: Kali Reid M.D. on 01/03/2024 at 12:57 Approved by: Kali Reid M.D. on 01/03/2024 at 13:03
--- NOTE | 2024-01-03 20:45 | PC.NURSE ---
Addendum entered by Bri Wiley, AUDELIA 01/04/24 12:09: 1210- [facility], spoke to Avinash, still working on getting a bed Addendum entered by Gretchen Chiu, AUDELIA 01/04/24 06:23: AUDELIA note: [phone] Spoke to Joanne at -they don't have a bed now, but are working on it for possibly later today. Will update RN and doctor. Original Note: PATIENT ACCOUNT ANALYST note: 2043 Spoke to Fifi at [facility]. Asked for an update. Fifi said she had been accepted, on the list, but no bed assignment yet. Thanked her for her help. Will follow up later in shift
[2024-01-04] VITALS (52 sets, daily range): BP systolic 119–193; BP diastolic 58–106; PULSE 82–111; RESP 12–64; TEMP 36.4; O2SAT 91–98
[2024-01-04] MEDS: DEXAMETHASONE 10 MG/ML VIAL IV (08:03)
== END 2024-01-04 16:55 | disposition short-term general hospital (02) ==
PROVIDERS: Emergency Medicine; Emergency Provider Emergency Medicine; Family Provider Family Medicine; PCP Family Medicine
DX: G93.89 Other specified disorders of brain (principal); R07.9 Chest pain, unspecified
CPT/HCPCS: 36415; 70496; 70498; 71045; 71260; 74177; 80053; 82550; 83690; 83735; 84484; 85025; 85610; 85730; 93005; 93010; 96374; 96376; 99284; J1100; Q9967

== ENCOUNTER → 2024-02-06 15:35 | Outpatient (CLI) | payer MEDICARE, OTHER, SELFPAY ==
--- NOTE | 2024-02-06 15:37 | DI.MG.S_ITS ---
BILATERAL DIGITAL SCREENING MAMMOGRAM 3D/2D WITH CAD: 02/06/2024 CLINICAL: Routine screening. Comparison is made to exams dated: 01/24/2022 mammogram - [facility], 05/24/2020 mammogram, 04/25/2018 mammogram, and 11/15/2016 mammogram - outside location. There are scattered areas of fibroglandular density in both breasts (category b / 25%-50% glandular tissue). Current study was also evaluated with a Computer Aided Detection (CAD) system. No significant masses, calcifications, or other findings are seen in either breast. There has been no significant interval change. IMPRESSION: NEGATIVE There is no mammographic evidence of malignancy. A 1 year screening mammogram is recommended. Based on the Tyrer Cuzick model (a risk assessment model) the patient's lifetime risk is 6.7% and her 10 year risk is 3.2%. According to the ACR, ACS, and NCCN guidelines, an annual breast MRI exam along with mammogram is recommended if the patient's lifetime risk is 20% or greater. This exam was interpreted at Station ID: [id number]. NOTE: For mammograms, a report in lay terms will be sent to the patient. Approximately 15% of breast malignancies will not be visualized mammographically. In the management of a palpable breast mass, a negative mammogram must not discourage biopsy of a clinically suspicious lesion. Electronically Signed By: Carlos Alberto eric/keith:02/07/2024 08:44:57 letter sent: Normal Exam ACR BI-RADS Category 1: Negative [id number]
== END ==
LOC: MAMMO 15:36
PROVIDERS: Family Provider Family Medicine; PCP Family Medicine; Referring Provider Family Medicine; Visit Provider Family Medicine
DX: Z12.31 Encounter for screening mammogram for malignant neoplasm of breast (principal); R92.323 Mammographic fibroglandular density, bilateral breasts
CPT/HCPCS: 77063; 77067

== ENCOUNTER → 2024-03-06 07:21 | Outpatient (CLI) | payer MEDICARE, OTHER, SELFPAY ==
[2024-03-06 08:56] LABS: Free T4, Direct Thyroxine 1.96 ng/dL (0.78-2.19)
[2024-03-06 09:09] LABS: Cortisol AM (Before 10AM) 9.02 ug/dL (4.46-22.7); Thyroid Stimulating Hormone 1.22 uIU/mL (0.47-4.68)
== END ==
PROVIDERS: Family Provider Family Medicine; PCP Family Medicine; Referring Provider Internal Medicine Endocrinology, Diabetes & Metabolism; Visit Provider Internal Medicine Endocrinology, Diabetes & Metabolism
DX: D35.2 Benign neoplasm of pituitary gland (principal); E89.0 Postprocedural hypothyroidism
CPT/HCPCS: 36415; 82533; 84439; 84443

== ENCOUNTER 2024-04-03 10:30 | Outpatient (RCR) | payer MEDICARE, OTHER, SELFPAY ==
--- NOTE | 2024-02-13 15:12 | PT.OIE ---
Current Diagnoses Neoplasm of unspecified behavior of brain (02/13/24) Muscle weakness (generalized) (02/13/24) Other fatigue (02/13/24) Past Medical History (Last Reviewed 09/08/23 @ 08:07 by Pam Caemron PA-C) Diverticulitis Left lower quadrant abdominal pain Visit Care Team Role Provider Type Priyanka Spicer MD Family Provider Non-Staff Primary Care Provider Specialty: Family Practice Address: [address] [place] [address], [id number] Email: Gladys Christine PA-C Attending Provider Non-Staff Referring Provider Specialty: Medical Address: [address] [place] [address], [id number], [place], [address] Email: Physical Therapy Initial Evaluation PT-OP-A Visit Information Start: 02/13/24 14:11 Freq: Status: Active Protocol: Document 02/13/24 10:30 DCW (Rec: 02/13/24 14:25 DCW [id number]) Out-Patient Physical Therapy Visit Information Visit Information Visit Type Initial Evaluation Visit Start Time 10:30 Visit Stop Time 11:15 Visit Number 1 Number of ARTILLERY OFFICER Visits 0 Evaluation Information Evaluation Date 02/13/24 PT-OP-B Current Condition Start: 02/13/24 14:11 Freq: Status: Active Protocol: Document 02/13/24 10:30 DCW (Rec: 02/13/24 14:25 DCW [id number]) Current Condition History of Current Condition Onset Date 01/05/24 Current Complaints Craniotomy secondary to brain tumor History of Current Condition Pt is a 63 year old female presenting six weeks 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 Pt reports that her balance almost immediately improved, and she felt like her stability pretty much returned the day after surgery. Notes that she is continuing to improve daily, just began driving again last week, and today was the first time she drove into town on her own. No longer using an AD for stability except for longer walks in [place], but admits that more due to anxiety than actual instability. Feels her balance and gait are really doing well, but after her surgery and recovery, just largely feels like she is weak and has poor activity tolerance. Treatment Goals Patient/Caregiver Goals Improve leg and core strength, improve activity tolerance PT-OP-C Subjective Start: 02/13/24 14:11 Freq: Status: Active Protocol: Document 02/13/24 10:30 DCW (Rec: 02/13/24 14:25 DCW [id number]) OP-PT Subjective Patient Comments Patient Comments The surgeon said the tumor was the size of a Cutie ( vi)! Patient Reported Progress Improving PT-OP-E Functional Tests Start: 02/13/24 14:11 Freq: Status: Active Protocol: Document 02/13/24 10:30 DCW (Rec: 02/13/24 14:56 DCW [id number]) Functional Tests 30 Second Sit to Stand Test Score x8 repetitions Comments Required UE use PT-OP-M Strength Start: 02/13/24 14:11 Freq: Status: Active Protocol: Document 02/13/24 10:30 DCW (Rec: 02/13/24 14:56 DCW [id number]) Trunk Strength Trunk Manual Muscle Testing Core Stabilization Requires multiple verbal andd tactile cues for any core contraction, struggles to maintain contraction with any activity. 3-/5 Hip Strength Hip Manual Muscle Testing Right Flexion (L2) 4- Good- Abduction 4 Good Adduction 4- Good- External Rotation 4 Good Internal Rotation 4 Good Left Flexion (L2) 4- Good- Abduction 4 Good Adduction 4- Good- External Rotation 4 Good Internal Rotation 4- Good- Knee Strength Knee Manual Muscle Testing Right Flexion (S2) 4- Good- Extension (L3) 4 Good Left Flexion (S2) 4 Good Extension (L3) 4 Good Ankle/Foot Strength Ankle and Foot Manual Muscle Testing Right Dorsiflexion (L4) 4 Good Left Dorsiflexion (L4) 4 Good PT-OP-Q Treatments Start: 02/13/24 14:11 Freq: Status: Active Protocol: Document 02/13/24 10:30 DCW (Rec: 02/13/24 14:56 DCW [id number]) Gym Equipment Therapeutic Ball Amdominal Curl Exercise Details T-ball press into abdomen with small trunk curl Ball Size/Color Blue - 45 cm Body Position Hooklying Therapeutic Exercises Supine Exercises Marching Supine Exercise Name PPT /c TrA - Marching PPT Supine Exercise Name PPT /c TrA contraction PT-OP-T Assessment and Plan Start: 02/13/24 14:11 Freq: Status: Active Protocol: Document 02/13/24 10:30 DCW (Rec: 02/13/24 15:12 DCW [id number]) Physical Therapy Assessment Rehab Potential Rehabilitation Potential Good Evaluation Complexity Number of Personal Factors/Comorbidities 1-2 Number of Body Systems Impaired 1-2 Clinical Presentation at Evaluation Stable Impairments Impairments Activity Tolerance,Functional Activities,Functional Mobility ,Gait,Soft Tissue Mobility, Strength Goals Two Impairment Pt exhibits poor (3-/5) core strength Custodial Goal (LTG) Pt to improve core strength MMT to >4-/5 in order to improve activity tolerance and core stability LTG Duration 04/14/24 One Impairment Pt does not have an appropriate home exercise program Short Term Goal (STG) Pt to be independent and compliant with an appropriate HEP STG Duration 03/15/24 Assessment Summary Assessment Pt presents with signs and symptoms consistent with general weakness and deconditioning following decline in functional activity secondary s/p craniotomy. Pre -surgery, pt was struggling a lot with imbalance and gait instability, which has largely resolved post-op. Pt should benefit from skilled therapy focusing on improving core strength, LE strength, and activity tolerance, as well as improving confidence and decreasing fear of falling. Physical Therapy Plan Frequency and Duration Frequency of Treatment 2x/Week Plan of Care Start Date 02/13/24 Plan of Care End Date 04/14/24 Therapeutic Interventions Therapeutic Interventions Balance Training,Home Exercise Program,Joint Mobilizations, Manual Therapy,Neuromuscular Re-education,Patient/Caregiver Education,Self-Care/Home Management,Soft Tissue Mobilization,Therapeutic Activities,Therapeutic Exercises Next Visit Focus/Plan Next Note Type Treatment Note Next Visit Plan Core strengthening, B LE strengthening, improving activity tolerance
--- NOTE | 2024-02-13 15:13 | PT.OPPOC ---
Physical, Occupational & Speech Therapy At [facility] Current Diagnoses Neoplasm of unspecified behavior of brain (02/13/24) Muscle weakness (generalized) (02/13/24) Other fatigue (02/13/24) Visit Care Team Role Provider Type Priyanka Spicer MD Family Provider Non-Staff Primary Care Provider Specialty: Family Practice Address: [address] [place] [address], [id number] Email: Gladys Christine PA-C Attending Provider Non-Staff Referring Provider Specialty: Medical Address: [address] [place] [address], [id number], [place], [address] Email: Plan Of Care PT-OP-T Assessment and Plan Start: 02/13/24 14:11 Freq: Status: Active Protocol: Document 02/13/24 10:30 DCW (Rec: 02/13/24 15:12 DCW [id number]) Physical Therapy Assessment Rehab Potential Rehabilitation Potential Good Evaluation Complexity Number of Personal Factors/Comorbidities 1-2 Number of Body Systems Impaired 1-2 Clinical Presentation at Evaluation Stable Impairments Impairments Activity Tolerance,Functional Activities,Functional Mobility ,Gait,Soft Tissue Mobility, Strength Goals Two Impairment Pt exhibits poor (3-/5) core strength Jail Goal (LTG) Pt to improve core strength MMT to >4-/5 in order to improve activity tolerance and core stability LTG Duration 04/14/24 One Impairment Pt does not have an appropriate home exercise program Short Term Goal (STG) Pt to be independent and compliant with an appropriate HEP STG Duration 03/15/24 Assessment Summary Assessment Pt presents with signs and symptoms consistent with general weakness and deconditioning following decline in functional activity secondary s/p craniotomy. Pre -surgery, pt was struggling a lot with imbalance and gait instability, which has largely resolved post-op. Pt should benefit from skilled therapy focusing on improving core strength, LE strength, and activity tolerance, as well as improving confidence and decreasing fear of falling. Physical Therapy Plan Frequency and Duration Frequency of Treatment 2x/Week Plan of Care Start Date 02/13/24 Plan of Care End Date 04/14/24 Therapeutic Interventions Therapeutic Interventions Balance Training,Home Exercise Program,Joint Mobilizations, Manual Therapy,Neuromuscular Re-education,Patient/Caregiver Education,Self-Care/Home Management,Soft Tissue Mobilization,Therapeutic Activities,Therapeutic Exercises Next Visit Focus/Plan Next Note Type Treatment Note Next Visit Plan Core strengthening, B LE strengthening, improving activity tolerance Plan of Care Dates Plan of Care Start Date 02/13/24 Plan of Care End Date 04/14/24 Electronically Signed by: Pardeep Gutierrez, PT 02/13/24 [id number] If you are in agreement with this Plan of Care, please return a signed and dated copy. I have reviewed this Plan of Care and certify that the skilled therapy services above are required to meet the patient?s needs. Physician Signature Date Printed Name and Credentials Clinical Instructor Signature Printed Name and Credentials
--- NOTE | 2024-02-15 11:08 | PT.OTN ---
Current Diagnoses Neoplasm of unspecified behavior of brain (02/15/24) Muscle weakness (generalized) (02/15/24) Other fatigue (02/15/24) Physical Therapy Treatment Note PT-OP-A Visit Information Start: 02/13/24 14:11 Freq: Status: Active Protocol: Document 02/15/24 10:25 DCW (Rec: 02/15/24 11:07 DCW [id number]) Out-Patient Physical Therapy Visit Information Visit Information Visit Type Treatment Note Visit Start Time 10:25 Visit Stop Time 11:10 Visit Number 2 Number of WELDER FITTER GAS Visits 0 Evaluation Information Evaluation Date 02/13/24 PT-OP-B Current Condition Start: 02/13/24 14:11 Freq: Status: Active Protocol: Document 02/13/24 10:30 DCW (Rec: 02/13/24 14:25 DCW [id number]) Current Condition History of Current Condition Onset Date 01/05/24 Current Complaints Craniotomy secondary to brain tumor History of Current Condition Pt is a 63 year old female presenting six weeks 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 Pt reports that her balance almost immediately improved, and she felt like her stability pretty much returned the day after surgery. Notes that she is continuing to improve daily, just began driving again last week, and today was the first time she drove into town on her own. No longer using an AD for stability except for longer walks in [place], but admits that more due to anxiety than actual instability. Feels her balance and gait are really doing well, but after her surgery and recovery, just largely feels like she is weak and has poor activity tolerance. Treatment Goals Patient/Caregiver Goals Improve leg and core strength, improve activity tolerance PT-OP-C Subjective Start: 02/13/24 14:11 Freq: Status: Active Protocol: Document 02/15/24 10:25 DCW (Rec: 02/15/24 11:08 DCW [id number]) OP-PT Subjective Patient Comments Patient Comments Pt feeling more optimistic today, ready to get to work. PT-OP-E Functional Tests Start: 02/13/24 14:11 Freq: Status: Active Protocol: Document 02/13/24 10:30 DCW (Rec: 02/13/24 14:56 DCW [id number]) Functional Tests 30 Second Sit to Stand Test Score x8 repetitions Comments Required UE use PT-OP-M Strength Start: 02/13/24 14:11 Freq: Status: Active Protocol: Document 02/13/24 10:30 DCW (Rec: 02/13/24 14:56 [facility] [id number]) Trunk Strength Trunk Manual Muscle Testing Core Stabilization Requires multiple verbal andd tactile cues for any core contraction, struggles to maintain contraction with any activity. 3-/5 Hip Strength Hip Manual Muscle Testing Right Flexion (L2) 4- Good- Abduction 4 Good Adduction 4- Good- External Rotation 4 Good Internal Rotation 4 Good Left Flexion (L2) 4- Good- Abduction 4 Good Adduction 4- Good- External Rotation 4 Good Internal Rotation 4- Good- Knee Strength Knee Manual Muscle Testing Right Flexion (S2) 4- Good- Extension (L3) 4 Good Left Flexion (S2) 4 Good Extension (L3) 4 Good Ankle/Foot Strength Ankle and Foot Manual Muscle Testing Right Dorsiflexion (L4) 4 Good Left Dorsiflexion (L4) 4 Good PT-OP-Q Treatments Start: 02/13/24 14:11 Freq: Status: Active Protocol: Document 02/15/24 10:25 DCW (Rec: 02/15/24 11:07 DCW [id number]) Gym Equipment Shuttle Recovery Unilateral Squats Resistance 37# (one new) Shuttle Recovery Platform Stable Bilateral Squats Resistance 75# (three new) Shuttle Recovery Platform Stable Therapeutic Ball Hip Flexion Exercise Details Resisted hip/knee flexion Ball Size/Color Red - 55 cm Lv 3 T-band LTR Exercise Details LTR Ball Size/Color Red - 55 cm Therapeutic Exercises Standing Exercises Heel raises Standing Exercise Name Heel Raises Equipment Used // bars Pallof Press Standing Exercise Name Pallof Press Side bilateral Resistance Green Other Exercises Resisted Ambulation Other Exercise Name Resisted Side-stepping Resistance Green loop Equipment Used // bars Neuro Re-Education Treatment Balance Activities SLS Details SLS Equipment // bars Tandem Stance Details Tandem Stance Surface Firm and on AirEx PT-OP-T Assessment and Plan Start: 02/13/24 14:11 Freq: Status: Active Protocol: Document 02/15/24 10:25 DCW (Rec: 02/15/24 11:07 DCW [id number]) Physical Therapy Assessment Goals Two Impairment Pt exhibits poor (3-/5) core strength Dental Financial Coordinator Goal (LTG) Pt to improve core strength MMT to >4-/5 in order to improve activity tolerance and core stability LTG Duration 04/14/24 One Impairment Pt does not have an appropriate home exercise program Short Term Goal (STG) Pt to be independent and compliant with an appropriate HEP STG Duration 03/15/24 Assessment Summary Assessment Pt showing some improvements with ability to contract core musculature upon request, noted fatigue in left hip with most activities. Continue to work on hip and ankle strength , core strength, and static/ dynamic balance challenges. Physical Therapy Plan Frequency and Duration Frequency of Treatment 2x/Week Plan of Care Start Date 02/13/24 Plan of Care End Date 04/14/24 Therapeutic Interventions Therapeutic Interventions Balance Training,Home Exercise Program,Joint Mobilizations, Manual Therapy,Neuromuscular Re-education,Patient/Caregiver Education,Self-Care/Home Management,Soft Tissue Mobilization,Therapeutic Activities,Therapeutic Exercises Next Visit Focus/Plan Next Note Type Treatment Note Next Visit Plan Core strengthening, B LE strengthening, improving activity tolerance
--- NOTE | 2024-02-27 10:29 | PT.OTN ---
Current Diagnoses Neoplasm of unspecified behavior of brain (02/27/24) Muscle weakness (generalized) (02/27/24) Other fatigue (02/27/24) Physical Therapy Treatment Note PT-OP-A Visit Information Start: 02/13/24 14:11 Freq: Status: Active Protocol: Document 02/27/24 09:49 SP (Rec: 02/27/24 09:57 SP [id number]) Out-Patient Physical Therapy Visit Information Visit Information Visit Type Treatment Note Visit Start Time 09:49 Visit Stop Time 10:29 Visit Number 3 Number of MEAT SPECIALIST Visits 1 Evaluation Information Evaluation Date 02/13/24 PT-OP-B Current Condition Start: 02/13/24 14:11 Freq: Status: Active Protocol: Document 02/13/24 10:30 DCW (Rec: 02/13/24 14:25 DCW [id number]) Current Condition History of Current Condition Onset Date 01/05/24 Current Complaints Craniotomy secondary to brain tumor History of Current Condition Pt is a 63 year old female presenting six weeks 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 Pt reports that her balance almost immediately improved, and she felt like her stability pretty much returned the day after surgery. Notes that she is continuing to improve daily, just began driving again last week, and today was the first time she drove into town on her own. No longer using an AD for stability except for longer walks in [place], but admits that more due to anxiety than actual instability. Feels her balance and gait are really doing well, but after her surgery and recovery, just largely feels like she is weak and has poor activity tolerance. Treatment Goals Patient/Caregiver Goals Improve leg and core strength, improve activity tolerance PT-OP-C Subjective Start: 02/13/24 14:11 Freq: Status: Active Protocol: Document 02/27/24 09:49 SP (Rec: 02/27/24 09:57 SP [id number]) OP-PT Subjective Patient Comments Patient Comments Pt reports was able take a shower without sitting and 5, 000 steps without trek poles. PT-OP-E Functional Tests Start: 02/13/24 14:11 Freq: Status: Active Protocol: Document 02/13/24 10:30 DCW (Rec: 02/13/24 14:56 DCW [id number]) Functional Tests 30 Second Sit to Stand Test Score x8 repetitions Comments Required UE use PT-OP-M Strength Start: 02/13/24 14:11 Freq: Status: Active Protocol: Document 02/13/24 10:30 DCW (Rec: 02/13/24 14:56 DCW [id number]) Trunk Strength Trunk Manual Muscle Testing Core Stabilization Requires multiple verbal andd tactile cues for any core contraction, struggles to maintain contraction with any activity. 3-/5 Hip Strength Hip Manual Muscle Testing Right Flexion (L2) 4- Good- Abduction 4 Good Adduction 4- Good- External Rotation 4 Good Internal Rotation 4 Good Left Flexion (L2) 4- Good- Abduction 4 Good Adduction 4- Good- External Rotation 4 Good Internal Rotation 4- Good- Knee Strength Knee Manual Muscle Testing Right Flexion (S2) 4- Good- Extension (L3) 4 Good Left Flexion (S2) 4 Good Extension (L3) 4 Good Ankle/Foot Strength Ankle and Foot Manual Muscle Testing Right Dorsiflexion (L4) 4 Good Left Dorsiflexion (L4) 4 Good PT-OP-Q Treatments Start: 02/13/24 14:11 Freq: Status: Active Protocol: Document 02/27/24 09:49 SP (Rec: 02/27/24 10:34 SP [id number]) Gym Equipment Shuttle Recovery Unilateral Squats Details cued knee alignment Resistance 37# (one new) Shuttle Recovery Platform Stable Reps/Time x15 Bilateral Squats Resistance 75# (three new) Shuttle Recovery Platform Stable Reps/Time x25 Therapeutic Ball Hip Flexion Exercise Details Resisted hip/knee flexion Ball Size/Color Red - 55 cm Lv 3 T-band Body Position Hooklying Reps/Duration 2x10 Comments good quad, hipflexor, core engagement LTR Exercise Details LTR Ball Size/Color Red - 55 cm AROM>TB #2 Body Position Hooklying Reps/Duration 2x10 Comments mod cues level pelvis on table , slow rotation ball moving, TA draw in assisted oblique fac and improve form with reps . Amdominal Curl Exercise Details T-ball press into abdomen with small trunk curl Ball Size/Color Blue - 55 cm Body Position Hooklying Reps/Duration 3 SH x10 Comments cued UE elbow ext Therapeutic Exercises Supine Exercises Marching Supine Exercise Name PPT /c TrA - sequencial Marching- added to HEP Side bilateral Resistance added toHEP Reps/Minutes 5 reps, 3 reps lead each LE Comments cued TA draw in, level pelvis, slow controlled eccentric lower Other Exercises Resisted Ambulation Other Exercise Name Resisted Side-stepping- added to HEP Resistance Green loop shins Equipment Used near //bars- not needed Reps/Minutes 10 ft x2 laps Comments occ cue slow controlled ecc together, trail LE clearance Neuro Re-Education Treatment Balance Activities TANDEM WALKING Details trialed inPT Equipment //bars light contact Reps/Duration 10 ft x2 laps Comments cued midline stab PT-OP-T Assessment and Plan Start: 02/13/24 14:11 Freq: Status: Active Protocol: Document 02/27/24 09:49 SP (Rec: 02/27/24 09:57 SP [id number]) Physical Therapy Assessment Goals Two Impairment Pt exhibits poor (3-/5) core strength Coil Wrapper Goal (LTG) Pt to improve core strength MMT to >4-/5 in order to improve activity tolerance and core stability LTG Duration 04/14/24 One Impairment Pt does not have an appropriate home exercise program Short Term Goal (STG) Pt to be independent and compliant with an appropriate HEP STG Duration 03/15/24 Assessment Summary Assessment Tx focused on HEP core and hip abd strengthening for carryover home application, provided HOs: sequencial march , band walks. Cues for PPT during LTRs and abdominal with slower level pelvis improved TA facilitation. Improved stability and foot clearance and trail LE control with wt into forefoot VCs given and carryover with reps for home progression. Physical Therapy Plan Frequency and Duration Frequency of Treatment 2x/Week Plan of Care Start Date 02/13/24 Plan of Care End Date 04/14/24 Therapeutic Interventions Therapeutic Interventions Balance Training,Home Exercise Program,Joint Mobilizations, Manual Therapy,Neuromuscular Re-education,Patient/Caregiver Education,Self-Care/Home Management,Soft Tissue Mobilization,Therapeutic Activities,Therapeutic Exercises Next Visit Focus/Plan Next Note Type Treatment Note Next Visit Plan Recheck core march and band walk HEP. POC:Core strengthening, B LE strengthening, improving activity tolerance
--- NOTE | 2024-03-01 11:14 | PT.OTN ---
Current Diagnoses Neoplasm of unspecified behavior of brain (03/01/24) Muscle weakness (generalized) (03/01/24) Other fatigue (03/01/24) Physical Therapy Treatment Note PT-OP-A Visit Information Start: 02/13/24 14:11 Freq: Status: Active Protocol: Document 03/01/24 10:30 DCW (Rec: 03/01/24 11:14 DCW [id number]) Out-Patient Physical Therapy Visit Information Visit Information Visit Type Treatment Note Visit Start Time 10:30 Visit Stop Time 11:15 Visit Number 4 Number of BALLET COMPANY MEMBER Visits 0 Evaluation Information Evaluation Date 02/13/24 PT-OP-B Current Condition Start: 02/13/24 14:11 Freq: Status: Active Protocol: Document 02/13/24 10:30 DCW (Rec: 02/13/24 14:25 DCW [id number]) Current Condition History of Current Condition Onset Date 01/05/24 Current Complaints Craniotomy secondary to brain tumor History of Current Condition Pt is a 63 year old female presenting six weeks 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 Pt reports that her balance almost immediately improved, and she felt like her stability pretty much returned the day after surgery. Notes that she is continuing to improve daily, just began driving again last week, and today was the first time she drove into town on her own. No longer using an AD for stability except for longer walks in [place], but admits that more due to anxiety than actual instability. Feels her balance and gait are really doing well, but after her surgery and recovery, just largely feels like she is weak and has poor activity tolerance. Treatment Goals Patient/Caregiver Goals Improve leg and core strength, improve activity tolerance PT-OP-C Subjective Start: 02/13/24 14:11 Freq: Status: Active Protocol: Document 03/01/24 10:30 DCW (Rec: 03/01/24 11:14 DCW [id number]) OP-PT Subjective Patient Comments Patient Comments Pt reports she is a little tired today after waking up early. PT-OP-E Functional Tests Start: 02/13/24 14:11 Freq: Status: Active Protocol: Document 02/13/24 10:30 DCW (Rec: 02/13/24 14:56 DCW [id number]) Functional Tests 30 Second Sit to Stand Test Score x8 repetitions Comments Required UE use PT-OP-M Strength Start: 02/13/24 14:11 Freq: Status: Active Protocol: Document 02/13/24 10:30 DCW (Rec: 02/13/24 14:56 DCW [id number]) Trunk Strength Trunk Manual Muscle Testing Core Stabilization Requires multiple verbal andd tactile cues for any core contraction, struggles to maintain contraction with any activity. 3-/5 Hip Strength Hip Manual Muscle Testing Right Flexion (L2) 4- Good- Abduction 4 Good Adduction 4- Good- External Rotation 4 Good Internal Rotation 4 Good Left Flexion (L2) 4- Good- Abduction 4 Good Adduction 4- Good- External Rotation 4 Good Internal Rotation 4- Good- Knee Strength Knee Manual Muscle Testing Right Flexion (S2) 4- Good- Extension (L3) 4 Good Left Flexion (S2) 4 Good Extension (L3) 4 Good Ankle/Foot Strength Ankle and Foot Manual Muscle Testing Right Dorsiflexion (L4) 4 Good Left Dorsiflexion (L4) 4 Good PT-OP-Q Treatments Start: 02/13/24 14:11 Freq: Status: Active Protocol: Document 03/01/24 10:30 DCW (Rec: 03/01/24 11:14 DCW [id number]) Gym Equipment Shuttle Recovery Unilateral Squats Resistance 50# (one new) Shuttle Recovery Platform Stable Bilateral Squats Resistance 100# (three new) Shuttle Recovery Platform Stable Shuttle Balance Red Details WBOS, Staggered Therapeutic Exercises Other Exercises Resisted Ambulation Other Exercise Name Resisted Side-stepping Resistance Green loop Equipment Used // bars Neuro Re-Education Treatment Balance Activities Foam Stance Details DL stance Surface AirEx Comments Head turns, eyes closed Dynamic Gait Details Head turns in hallway Comments Horizontal, Vertical TANDEM WALKING Details Tandem Ambulation Equipment //bars light contact Reps/Duration 10 ft x4 laps SLS Details SLS Equipment // bars PT-OP-T Assessment and Plan Start: 02/13/24 14:11 Freq: Status: Active Protocol: Document 03/01/24 10:30 DCW (Rec: 03/01/24 11:14 [facility] [id number]) Physical Therapy Assessment Impairments Impairments Activity Tolerance,Functional Activities,Functional Mobility ,Gait,Soft Tissue Mobility, Strength Goals Two Impairment Pt exhibits poor (3-/5) core strength Automobile Brakes Bonder Goal (LTG) Pt to improve core strength MMT to >4-/5 in order to improve activity tolerance and core stability LTG Duration 04/14/24 One Impairment Pt does not have an appropriate home exercise program Short Term Goal (STG) Pt to be independent and compliant with an appropriate HEP STG Duration 03/15/24 Assessment Summary Assessment Pt continues to demonstrate come increased anxiety about her gait and balance, but is showing some very good overall improvement. Did struggle some with eyes closed, but good self-recovery Physical Therapy Plan Frequency and Duration Frequency of Treatment 2x/Week Plan of Care Start Date 02/13/24 Plan of Care End Date 04/14/24 Therapeutic Interventions Therapeutic Interventions Balance Training,Home Exercise Program,Joint Mobilizations, Manual Therapy,Neuromuscular Re-education,Patient/Caregiver Education,Self-Care/Home Management,Soft Tissue Mobilization,Therapeutic Activities,Therapeutic Exercises Next Visit Focus/Plan Next Note Type Treatment Note Next Visit Plan Recheck core march and band walk HEP. POC:Core strengthening, B LE strengthening, improving activity tolerance
--- NOTE | 2024-03-07 09:46 | PT.OTN ---
Current Diagnoses Neoplasm of unspecified behavior of brain (03/07/24) Muscle weakness (generalized) (03/07/24) Other fatigue (03/07/24) Physical Therapy Treatment Note PT-OP-A Visit Information Start: 02/13/24 14:11 Freq: Status: Active Protocol: Document 03/07/24 09:12 SP (Rec: 03/07/24 09:48 SP [id number]) Out-Patient Physical Therapy Visit Information Visit Information Visit Type Treatment Note Visit Start Time 09:12 Visit Stop Time 09:46 Visit Number 5 Number of HUMAN RESOURCES DIRECTOR Visits 1 Evaluation Information Evaluation Date 02/13/24 PT-OP-B Current Condition Start: 02/13/24 14:11 Freq: Status: Active Protocol: Document 02/13/24 10:30 DCW (Rec: 02/13/24 14:25 DCW [id number]) Current Condition History of Current Condition Onset Date 01/05/24 Current Complaints Craniotomy secondary to brain tumor History of Current Condition Pt is a 63 year old female presenting six weeks 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 Pt reports that her balance almost immediately improved, and she felt like her stability pretty much returned the day after surgery. Notes that she is continuing to improve daily, just began driving again last week, and today was the first time she drove into town on her own. No longer using an AD for stability except for longer walks in [place], but admits that more due to anxiety than actual instability. Feels her balance and gait are really doing well, but after her surgery and recovery, just largely feels like she is weak and has poor activity tolerance. Treatment Goals Patient/Caregiver Goals Improve leg and core strength, improve activity tolerance PT-OP-C Subjective Start: 02/13/24 14:11 Freq: Status: Active Protocol: Document 03/07/24 09:12 SP (Rec: 03/07/24 09:48 SP [id number]) OP-PT Subjective Patient Comments Patient Comments Pt reported was pretty sore and unsteady after last tx, thinks resistance was more than used to and maybe to much . PT-OP-E Functional Tests Start: 02/13/24 14:11 Freq: Status: Active Protocol: Document 02/13/24 10:30 DCW (Rec: 02/13/24 14:56 DCW [id number]) Functional Tests 30 Second Sit to Stand Test Score x8 repetitions Comments Required UE use PT-OP-M Strength Start: 02/13/24 14:11 Freq: Status: Active Protocol: Document 02/13/24 10:30 DCW (Rec: 02/13/24 14:56 DCW [id number]) Trunk Strength Trunk Manual Muscle Testing Core Stabilization Requires multiple verbal andd tactile cues for any core contraction, struggles to maintain contraction with any activity. 3-/5 Hip Strength Hip Manual Muscle Testing Right Flexion (L2) 4- Good- Abduction 4 Good Adduction 4- Good- External Rotation 4 Good Internal Rotation 4 Good Left Flexion (L2) 4- Good- Abduction 4 Good Adduction 4- Good- External Rotation 4 Good Internal Rotation 4- Good- Knee Strength Knee Manual Muscle Testing Right Flexion (S2) 4- Good- Extension (L3) 4 Good Left Flexion (S2) 4 Good Extension (L3) 4 Good Ankle/Foot Strength Ankle and Foot Manual Muscle Testing Right Dorsiflexion (L4) 4 Good Left Dorsiflexion (L4) 4 Good PT-OP-Q Treatments Start: 02/13/24 14:11 Freq: Status: Active Protocol: Document 03/07/24 09:12 SP (Rec: 03/07/24 09:48 SP [id number]) Gym Equipment Shuttle Recovery Unilateral Squats Resistance 50# (one new) Shuttle Recovery Platform Stable Reps/Time 10 L, 8 R (max resistance/ tiring) Bilateral Squats Resistance 100# (three new) Shuttle Recovery Platform Stable Reps/Time 10 x2 Therapeutic Exercises Other Exercises Resisted Ambulation Other Exercise Name Resisted Side-stepping Resistance Green loop Equipment Used rail PRN Reps/Minutes 15 x2 laps Comments good form/stability Neuro Re-Education Treatment Balance Activities Dynamic Gait Details Head turns, back stepping, EC in hallway Comments Horizontal, Vertical PT-OP-T Assessment and Plan Start: 02/13/24 14:11 Freq: Status: Active Protocol: Document 03/07/24 09:12 SP (Rec: 03/07/24 09:48 SP [id number]) Physical Therapy Assessment Goals Two Impairment Pt exhibits poor (3-/5) core strength Mannequin Wig Maker Goal (LTG) Pt to improve core strength MMT to >4-/5 in order to improve activity tolerance and core stability LTG Duration 04/14/24 One Impairment Pt does not have an appropriate home exercise program Short Term Goal (STG) Pt to be independent and compliant with an appropriate HEP STG Duration 03/15/24 Assessment Summary Assessment Pt responded well to continued resistance BLEs today, ed progression can be sore, no adverse affects. She was cautious with iniitated dynamic balance head turns this tx, discussed practice for safety gait progression in community, was able to perform, CGA provided due to challenged with EC use wall contact and decreased stride EO back stepping, not used to doing distances. Physical Therapy Plan Frequency and Duration Frequency of Treatment 2x/Week Plan of Care Start Date 02/13/24 Plan of Care End Date 04/14/24 Therapeutic Interventions Therapeutic Interventions Balance Training,Home Exercise Program,Joint Mobilizations, Manual Therapy,Neuromuscular Re-education,Patient/Caregiver Education,Self-Care/Home Management,Soft Tissue Mobilization,Therapeutic Activities,Therapeutic Exercises Next Visit Focus/Plan Next Note Type Treatment Note Next Visit Plan Continue neuro dynamic gait. Recheck core march and band walk HEP. POC:Core strengthening, B LE strengthening, improving activity tolerance
--- NOTE | 2024-03-12 11:12 | PT.OTN ---
Current Diagnoses Neoplasm of unspecified behavior of brain (03/12/24) Muscle weakness (generalized) (03/12/24) Other fatigue (03/12/24) Physical Therapy Treatment Note PT-OP-A Visit Information Start: 02/13/24 14:11 Freq: Status: Active Protocol: Document 03/12/24 10:30 DCW (Rec: 03/12/24 11:12 DCW [id number]) Out-Patient Physical Therapy Visit Information Visit Information Visit Type Treatment Note Visit Start Time 10:30 Visit Stop Time 11:15 Visit Number 6 Number of IMPRESSION PRINTER Visits 0 Evaluation Information Evaluation Date 02/13/24 PT-OP-B Current Condition Start: 02/13/24 14:11 Freq: Status: Active Protocol: Document 02/13/24 10:30 DCW (Rec: 02/13/24 14:25 DCW [id number]) Current Condition History of Current Condition Onset Date 01/05/24 Current Complaints Craniotomy secondary to brain tumor History of Current Condition Pt is a 63 year old female presenting six weeks 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 Pt reports that her balance almost immediately improved, and she felt like her stability pretty much returned the day after surgery. Notes that she is continuing to improve daily, just began driving again last week, and today was the first time she drove into town on her own. No longer using an AD for stability except for longer walks in [place], but admits that more due to anxiety than actual instability. Feels her balance and gait are really doing well, but after her surgery and recovery, just largely feels like she is weak and has poor activity tolerance. Treatment Goals Patient/Caregiver Goals Improve leg and core strength, improve activity tolerance PT-OP-C Subjective Start: 02/13/24 14:11 Freq: Status: Active Protocol: Document 03/12/24 10:30 DCW (Rec: 03/12/24 11:12 DCW [id number]) OP-PT Subjective Patient Comments Patient Comments Pt admits her neck was a little sore following her head turn activities last time. PT-OP-E Functional Tests Start: 02/13/24 14:11 Freq: Status: Active Protocol: Document 02/13/24 10:30 DCW (Rec: 02/13/24 14:56 DCW [id number]) Functional Tests 30 Second Sit to Stand Test Score x8 repetitions Comments Required UE use PT-OP-M Strength Start: 02/13/24 14:11 Freq: Status: Active Protocol: Document 02/13/24 10:30 DCW (Rec: 02/13/24 14:56 DCW [id number]) Trunk Strength Trunk Manual Muscle Testing Core Stabilization Requires multiple verbal andd tactile cues for any core contraction, struggles to maintain contraction with any activity. 3-/5 Hip Strength Hip Manual Muscle Testing Right Flexion (L2) 4- Good- Abduction 4 Good Adduction 4- Good- External Rotation 4 Good Internal Rotation 4 Good Left Flexion (L2) 4- Good- Abduction 4 Good Adduction 4- Good- External Rotation 4 Good Internal Rotation 4- Good- Knee Strength Knee Manual Muscle Testing Right Flexion (S2) 4- Good- Extension (L3) 4 Good Left Flexion (S2) 4 Good Extension (L3) 4 Good Ankle/Foot Strength Ankle and Foot Manual Muscle Testing Right Dorsiflexion (L4) 4 Good Left Dorsiflexion (L4) 4 Good PT-OP-Q Treatments Start: 02/13/24 14:11 Freq: Status: Active Protocol: Document 03/12/24 10:30 DCW (Rec: 03/12/24 11:12 DCW [id number]) Gym Equipment Shuttle Recovery Unilateral Squats Resistance 50# (one new) Shuttle Recovery Platform Stable Reps/Time x10 each Bilateral Squats Resistance 100# (three new) Shuttle Recovery Platform Stable Reps/Time x10 Shuttle Balance Red Details WBOS, Staggered, Lateral weight shift Neuro Re-Education Treatment Balance Activities BOSU Details BOSU Lunge Surface Blue BOSU Foam Stance Details Marching, EO/EC Surface Large blue foam Dynamic Gait Details Head turns, back stepping, EC in hallway Comments Horizontal, Vertical PT-OP-T Assessment and Plan Start: 02/13/24 14:11 Freq: Status: Active Protocol: Document 03/12/24 10:30 DCW (Rec: 03/12/24 11:12 DCW [id number]) Physical Therapy Assessment Impairments Impairments Activity Tolerance,Functional Activities,Functional Mobility ,Gait,Soft Tissue Mobility, Strength Goals Two Impairment Pt exhibits poor (3-/5) core strength Mcc Goal (LTG) Pt to improve core strength MMT to >4-/5 in order to improve activity tolerance and core stability LTG Duration 04/14/24 One Impairment Pt does not have an appropriate home exercise program Short Term Goal (STG) Pt to be independent and compliant with an appropriate HEP STG Duration 03/15/24 Assessment Summary Assessment Pt continues to feel more uncomfortable with eyes closed activities, but is showing improvement with dynamic balance challenges. Appears to be more willing to start challenging balance at home. Physical Therapy Plan Frequency and Duration Frequency of Treatment 2x/Week Plan of Care Start Date 02/13/24 Plan of Care End Date 04/14/24 Therapeutic Interventions Therapeutic Interventions Balance Training,Home Exercise Program,Joint Mobilizations, Manual Therapy,Neuromuscular Re-education,Patient/Caregiver Education,Self-Care/Home Management,Soft Tissue Mobilization,Therapeutic Activities,Therapeutic Exercises Next Visit Focus/Plan Next Note Type Treatment Note Next Visit Plan Continue neuro dynamic gait. Recheck core march and band walk HEP. POC:Core strengthening, B LE strengthening, improving activity tolerance
--- NOTE | 2024-03-21 11:15 | PT.OTN ---
Current Diagnoses Neoplasm of unspecified behavior of brain (03/21/24) Muscle weakness (generalized) (03/21/24) Other fatigue (03/21/24) Physical Therapy Treatment Note PT-OP-A Visit Information Start: 02/13/24 14:11 Freq: Status: Active Protocol: Document 03/21/24 10:30 DCW (Rec: 03/21/24 11:15 DCW [id number]) Out-Patient Physical Therapy Visit Information Visit Information Visit Type Treatment Note Visit Start Time 10:30 Visit Stop Time 11:15 Visit Number 7 Number of CAPSULE MACHINE OPERATOR Visits 0 Evaluation Information Evaluation Date 02/13/24 PT-OP-B Current Condition Start: 02/13/24 14:11 Freq: Status: Active Protocol: Document 02/13/24 10:30 DCW (Rec: 02/13/24 14:25 DCW [id number]) Current Condition History of Current Condition Onset Date 01/05/24 Current Complaints Craniotomy secondary to brain tumor History of Current Condition Pt is a 63 year old female presenting six weeks 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 Pt reports that her balance almost immediately improved, and she felt like her stability pretty much returned the day after surgery. Notes that she is continuing to improve daily, just began driving again last week, and today was the first time she drove into town on her own. No longer using an AD for stability except for longer walks in [place], but admits that more due to anxiety than actual instability. Feels her balance and gait are really doing well, but after her surgery and recovery, just largely feels like she is weak and has poor activity tolerance. Treatment Goals Patient/Caregiver Goals Improve leg and core strength, improve activity tolerance PT-OP-C Subjective Start: 02/13/24 14:11 Freq: Status: Active Protocol: Document 03/21/24 10:30 DCW (Rec: 03/21/24 11:15 DCW [id number]) OP-PT Subjective Patient Comments Patient Comments I'm feeling a little off, a little weak, but I'm getting over a respritory thing, and I think that's it. PT-OP-E Functional Tests Start: 02/13/24 14:11 Freq: Status: Active Protocol: Document 02/13/24 10:30 DCW (Rec: 02/13/24 14:56 DCW [id number]) Functional Tests 30 Second Sit to Stand Test Score x8 repetitions Comments Required UE use PT-OP-M Strength Start: 02/13/24 14:11 Freq: Status: Active Protocol: Document 02/13/24 10:30 DCW (Rec: 02/13/24 14:56 DCW [id number]) Trunk Strength Trunk Manual Muscle Testing Core Stabilization Requires multiple verbal andd tactile cues for any core contraction, struggles to maintain contraction with any activity. 3-/5 Hip Strength Hip Manual Muscle Testing Right Flexion (L2) 4- Good- Abduction 4 Good Adduction 4- Good- External Rotation 4 Good Internal Rotation 4 Good Left Flexion (L2) 4- Good- Abduction 4 Good Adduction 4- Good- External Rotation 4 Good Internal Rotation 4- Good- Knee Strength Knee Manual Muscle Testing Right Flexion (S2) 4- Good- Extension (L3) 4 Good Left Flexion (S2) 4 Good Extension (L3) 4 Good Ankle/Foot Strength Ankle and Foot Manual Muscle Testing Right Dorsiflexion (L4) 4 Good Left Dorsiflexion (L4) 4 Good PT-OP-Q Treatments Start: 02/13/24 14:11 Freq: Status: Active Protocol: Document 03/21/24 10:30 DCW (Rec: 03/21/24 11:15 DCW [id number]) Gym Equipment Shuttle Recovery Unilateral Squats Resistance 50# (two new) R, 37# L Shuttle Recovery Platform Stable Reps/Time x10 each Bilateral Squats Resistance 100# (four new) Shuttle Recovery Platform Stable Reps/Time 2x10 Shuttle Balance Red Details WBOS, Staggered, Lateral weight shift Neuro Re-Education Treatment Balance Activities Dynamic Gait Details Head turns, back stepping, EC in hallway Comments Horizontal, Vertical SLS Details SLS Equipment // bars Tandem Stance Details Tandem Stance Surface Firm and on AirEx PT-OP-T Assessment and Plan Start: 02/13/24 14:11 Freq: Status: Active Protocol: Document 03/21/24 10:30 DCW (Rec: 03/21/24 11:15 VERONICA [id number]) Physical Therapy Assessment Impairments Impairments Activity Tolerance,Functional Activities,Functional Mobility ,Gait,Soft Tissue Mobility, Strength Goals Two Impairment Pt exhibits poor (3-/5) core strength Nursing Home Goal (LTG) Pt to improve core strength MMT to >4-/5 in order to improve activity tolerance and core stability LTG Duration 04/14/24 One Impairment Pt does not have an appropriate home exercise program Short Term Goal (STG) Pt to be independent and compliant with an appropriate HEP STG Duration 03/15/24 Assessment Summary Assessment Pt making improvements with participation in HEP, is feeling like her balance is improving overall, although she does feel she has had a bit of a setback after fighting off an illness over the past week. Physical Therapy Plan Frequency and Duration Frequency of Treatment 2x/Week Plan of Care Start Date 02/13/24 Plan of Care End Date 04/14/24 Therapeutic Interventions Therapeutic Interventions Balance Training,Home Exercise Program,Joint Mobilizations, Manual Therapy,Neuromuscular Re-education,Patient/Caregiver Education,Self-Care/Home Management,Soft Tissue Mobilization,Therapeutic Activities,Therapeutic Exercises Next Visit Focus/Plan Next Note Type Discharge Summary Next Visit Plan Continue neuro dynamic gait. Recheck core march and band walk HEP. POC:Core strengthening, B LE strengthening, improving activity tolerance
--- NOTE | 2024-04-03 10:56 | PT.OTN ---
Current Diagnoses Neoplasm of unspecified behavior of brain (04/03/24) Muscle weakness (generalized) (04/03/24) Other fatigue (04/03/24) Physical Therapy Treatment Note PT-OP-A Visit Information Start: 02/13/24 14:11 Freq: Status: Active Protocol: Document 04/03/24 10:30 DCW (Rec: 04/03/24 10:55 DCW [id number]) Out-Patient Physical Therapy Visit Information Visit Information Visit Type Discharge Summary Visit Start Time 10:30 Visit Stop Time 10:50 Visit Number 8 Number of TRUCK MECHANIC Visits 0 Evaluation Information Evaluation Date 02/13/24 PT-OP-B Current Condition Start: 02/13/24 14:11 Freq: Status: Active Protocol: Document 02/13/24 10:30 DCW (Rec: 02/13/24 14:25 DCW [id number]) Current Condition History of Current Condition Onset Date 01/05/24 Current Complaints Craniotomy secondary to brain tumor History of Current Condition Pt is a 63 year old female presenting six weeks 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 Pt reports that her balance almost immediately improved, and she felt like her stability pretty much returned the day after surgery. Notes that she is continuing to improve daily, just began driving again last week, and today was the first time she drove into town on her own. No longer using an AD for stability except for longer walks in [place], but admits that more due to anxiety than actual instability. Feels her balance and gait are really doing well, but after her surgery and recovery, just largely feels like she is weak and has poor activity tolerance. Treatment Goals Patient/Caregiver Goals Improve leg and core strength, improve activity tolerance PT-OP-C Subjective Start: 02/13/24 14:11 Freq: Status: Active Protocol: Document 04/03/24 10:30 DCW (Rec: 04/03/24 10:55 DCW [id number]) OP-PT Subjective Patient Comments Patient Comments My legs feel weird from the knees down, they just kind of feel weak. I go to Monday for a check-in. PT-OP-E Functional Tests Start: 02/13/24 14:11 Freq: Status: Active Protocol: Document 04/03/24 10:30 DCW (Rec: 04/03/24 10:56 DCW [id number]) Functional Tests 30 Second Sit to Stand Test Score x11 repetitions Comments No UE use PT-OP-M Strength Start: 02/13/24 14:11 Freq: Status: Active Protocol: Document 04/03/24 10:30 DCW (Rec: 04/03/24 10:56 DCW [id number]) Hip Strength Hip Manual Muscle Testing Right Flexion (L2) 4 Good Abduction 4+ Good+ Adduction 4+ Good+ External Rotation 4+ Good+ Internal Rotation 4+ Good+ Left Flexion (L2) 4+ Good+ Extension (S1) 4+ Good+ Abduction 4+ Good+ Adduction 4+ Good+ External Rotation 4+ Good+ Internal Rotation 4+ Good+ Knee Strength Knee Manual Muscle Testing Right Flexion (S2) 4 Good Extension (L3) 4+ Good+ Left Flexion (S2) 4+ Good+ Extension (L3) 4+ Good+ Ankle/Foot Strength Ankle and Foot Manual Muscle Testing Right Dorsiflexion (L4) 4+ Good+ Left Dorsiflexion (L4) 4+ Good+ PT-OP-Q Treatments Start: 02/13/24 14:11 Freq: Status: Active Protocol: Document 03/21/24 10:30 DCW (Rec: 03/21/24 11:15 DCW [id number]) Gym Equipment Shuttle Recovery Unilateral Squats Resistance 50# (two new) R, 37# L Shuttle Recovery Platform Stable Reps/Time x10 each Bilateral Squats Resistance 100# (four new) Shuttle Recovery Platform Stable Reps/Time 2x10 Shuttle Balance Red Details WBOS, Staggered, Lateral weight shift Neuro Re-Education Treatment Balance Activities Dynamic Gait Details Head turns, back stepping, EC in hallway Comments Horizontal, Vertical SLS Details SLS Equipment // bars Tandem Stance Details Tandem Stance Surface Firm and on AirEx PT-OP-T Assessment and Plan Start: 02/13/24 14:11 Freq: Status: Active Protocol: Document 04/03/24 10:30 DCW (Rec: 04/03/24 10:55 DCW [id number]) Physical Therapy Assessment Impairments Impairments Activity Tolerance,Functional Activities,Functional Mobility ,Gait,Soft Tissue Mobility, Strength Goals Two Impairment Pt exhibits poor (3-/5) core strength Snf Goal (LTG) Pt to improve core strength MMT to >4-/5 in order to improve activity tolerance and core stability LTG Duration Met One Impairment Pt does not have an appropriate home exercise program Short Term Goal (STG) Pt to be independent and compliant with an appropriate HEP STG Duration Met Progress Towards Goals Progress Towards Goals Goals Met Assessment Summary Assessment Pt doing very well, has met all goals. Pt has returned to prior level of function from before effects of benign vascular brain tumor. Pt's self-reported biggest limitation to continued improvement is low self- motivation to continue exercise s/p discharge from skilled therapy. Discussed joining a gym or signing up for classes at the local senior center to help. Pt agreeable to this plan. Pt to be discharged from skilled therapy at this time. Physical Therapy Plan Frequency and Duration Frequency of Treatment 2x/Week Plan of Care Start Date 02/13/24 Plan of Care End Date 04/14/24 Therapeutic Interventions Therapeutic Interventions Balance Training,Home Exercise Program,Joint Mobilizations, Manual Therapy,Neuromuscular Re-education,Patient/Caregiver Education,Self-Care/Home Management,Soft Tissue Mobilization,Therapeutic Activities,Therapeutic Exercises Discharge Physical Therapy Discharge Reasons Goals Met Next Visit Focus/Plan Next Note Type Discharge Summary
== END 2024-04-18 15:12 | disposition home or self-care (01) ==
LOC: PHYS 10:30
PROVIDERS: Family Provider Family Medicine; PCP Family Medicine; Referring Provider Physician Assistant; Visit Provider Physician Assistant
DX: D49.6 Neoplasm of unspecified behavior of brain (principal); R53.83 Other fatigue; M62.81 Muscle weakness (generalized)
CPT/HCPCS: 97110; 97112; 97140; 97161

== ENCOUNTER → 2024-07-16 07:36 | Outpatient (CLI) | payer MEDICARE, OTHER, SELFPAY | PROVIDERS: Family Provider Family Medicine; PCP Family Medicine; Referring Provider Family Medicine; Visit Provider Family Medicine | DX: E78.00 Pure hypercholesterolemia, unspecified (principal); Z82.49 Family history of ischemic heart disease and other diseases of the circulatory system | CPT/HCPCS: 36415; 83695 ==

== ENCOUNTER → 2024-08-07 07:55 | Outpatient (CLI) | payer MEDICARE, OTHER, SELFPAY ==
[2024-08-07 10:08] LABS: Alanine Aminotransferase 21 IU/L (<35); Albumin 4.2 g/dL (3.5-5.0); Albumin Globulin Ratio 1.4 (1.0-2.8); Alkaline Phosphatase 81 U/L (38-126); Aspartate Aminotransferase 24 IU/L (14-36); BUN Creatinine Ratio 23.3 (6-22); Bilirubin Total 0.5 mg/dL (0.2-1.3); Blood Urea Nitrogen 17 mg/dL (7-17); Calcium 9.8 mg/dL (8.4-10.2); Carbon Dioxide 22 mmol/L (22-32); Chloride 106 mmol/L (98-107); Cholesterol 149 mg/dL (140-199); Estimated Glomerular Filt Rate > 60 mL/min (>60); Glucose 93 mg/dL (80-110); HDL Cholesterol 57 mg/dL (40-60); HEMOLYSIS < 15 (0-50); LDL Cholesterol Calculated 71 mg/dL (<100); Potassium 4.4 mmol/L (3.4-5.1); Sodium 137 mmol/L (137-145); Total Protein 7.2 g/dL (6.3-8.2); Triglycerides 104 mg/dL (35-150)
[2024-08-07 10:15] LABS: Free T3, Triiodothyronine Free 3.57 pg/mL (2.77-5.27)
[2024-08-07 10:29] LABS: Thyroid Stimulating Hormone 1.37 uIU/mL (0.47-4.68)
[2024-08-09 16:37] LABS: Lipoprotein (a) 200.8 nmol/L (<75.0)
== END ==
PROVIDERS: Family Provider Family Medicine; PCP Family Medicine; Referring Provider Family Medicine; Visit Provider Family Medicine
DX: E78.00 Pure hypercholesterolemia, unspecified (principal); E03.9 Hypothyroidism, unspecified
CPT/HCPCS: 36415; 80053; 80061; 83695; 84439; 84443; 84481

== ENCOUNTER → 2024-10-30 12:05 | Outpatient (CLI) | payer MEDICARE, OTHER, SELFPAY ==
[2024-10-30 12:55] LABS: Alanine Aminotransferase 24 IU/L (<35); Albumin 4.2 g/dL (3.5-5.0); Albumin Globulin Ratio 1.6 (1.0-2.8); Alkaline Phosphatase 72 U/L (38-126); Aspartate Aminotransferase 29 IU/L (14-36); Bilirubin Total 0.4 mg/dL (0.2-1.3); Creatine Kinase 42 U/L (30-135); Globulin 2.7 g/dL (1.7-4.1); HEMOLYSIS 22 (0-50); Total Protein 6.9 g/dL (6.3-8.2)
== END ==
PROVIDERS: Family Provider Family Medicine; PCP Family Medicine; Referring Provider Family Medicine; Visit Provider Family Medicine
DX: M79.10 Myalgia, unspecified site (principal); Z51.81 Encounter for therapeutic drug level monitoring
CPT/HCPCS: 36415; 80076; 82550

== ENCOUNTER → 2025-02-19 13:16 | Outpatient (CLI) | payer MEDICARE, OTHER, SELFPAY ==
--- NOTE | 2025-02-19 13:21 | DI.MG.S_ITS ---
MM screening mammo BI: 02/19/2025. BI-RADS: 1 CLINICAL: 64-year old female for bilateral screening mammogram. Tyrer-Cuzick lifetime risk of 6.2%. No personal or first-degree family history of breast cancer. PRIOR EXAMS 02/06/2024, 01/24/2022, 06/03/2020, 04/25/2018. MAMMOGRAPHY TECHNIQUE: 2D and 3D (tomosynthesis) digital mammographic views obtained, with additional images as needed for full coverage. Current study was also evaluated with a Computer Aided Detection (CAD) system. DENSITY B. There are scattered areas of fibroglandular density. MAMMOGRAPHY FINDINGS Bilateral: No suspicious mass, asymmetry, microcalcification, or other abnormality seen. No significant change from comparison. IMPRESSION: * No evidence of malignancy. RECOMMENDATIONS Bilateral * Annual screening mammography. OVERALL ASSESSMENT CATEGORY BI-RADS-1: Negative. The [employer] recommends annual screening mammography beginning at age 40 for women with average risk of breast cancer. ELECTRONICALLY SIGNED: Ava Aguero M.D. on 02/19/2025 at 08:19:59 PM PT Interpreting Station ID: [id number]
== END ==
PROVIDERS: Family Provider Family Medicine; PCP Family Medicine; Referring Provider Family Medicine; Visit Provider Family Medicine
DX: Z12.31 Encounter for screening mammogram for malignant neoplasm of breast (principal)
CPT/HCPCS: 77063; 77067

== ENCOUNTER → 2025-08-05 08:51 | Outpatient (CLI) | payer MEDICARE, OTHER, SELFPAY ==
[2025-08-05 09:43] LABS: Hemoglobin A1C% w Est Avg Glu 5.7 % (4.0-6.0)
[2025-08-05 10:32] LABS: Alanine Aminotransferase 22 IU/L (<35); Albumin 4.4 g/dL (3.5-5.0); Albumin Globulin Ratio 1.5 (1.0-2.8); Alkaline Phosphatase 76 U/L (38-126); Blood Urea Nitrogen 15 mg/dL (7-17); Calcium 9.9 mg/dL (8.4-10.2); Carbon Dioxide 29 mmol/L (22-32); Chloride 105 mmol/L (98-107); Cholesterol 156 mg/dL (140-199); Estimated Glomerular Filt Rate > 60 mL/min (>60); Globulin 2.9 g/dL (1.7-4.1); Glucose 98 mg/dL (70-99); HDL Cholesterol 67 mg/dL (40-60); HEMOLYSIS < 15 (0-50); Potassium 4.9 mmol/L (3.4-5.1); Sodium 139 mmol/L (137-145); Total Protein 7.3 g/dL (6.3-8.2); Triglycerides 105 mg/dL (35-150)
[2025-08-05 10:46] LABS: Free T3, Triiodothyronine Free 4.00 pg/mL (2.77-5.27); Free T4, Direct Thyroxine 1.55 ng/dL (0.78-2.19)
[2025-08-05 11:00] LABS: Thyroid Stimulating Hormone 1.83 uIU/mL (0.47-4.68)
== END ==
PROVIDERS: Family Provider Family Medicine; PCP Family Medicine; Referring Provider Family Medicine; Visit Provider Family Medicine
DX: E03.9 Hypothyroidism, unspecified (principal); E78.00 Pure hypercholesterolemia, unspecified; E78.41 Elevated Lipoprotein(a); I10 Essential (primary) hypertension
CPT/HCPCS: 36415; 80053; 80061; 83036; 83695; 84439; 84443; 84481